=== PATIENT | female | born 1965 | race Caucasian/White ===

== ENCOUNTER → 2020-05-27 14:02 | Outpatient (BNVA) | payer OTHER, SELFPAY | PROVIDERS: PCP Internal Medicine; Visit Provider Obstetrics & Gynecology | DX: N95.0 Postmenopausal bleeding (principal) | CPT/HCPCS: 58100; 99214 ==

== ENCOUNTER 2020-05-27 16:16 | Outpatient (REF) | payer OTHER, SELFPAY | END 2020-05-27 16:17 | disposition home or self-care (01) | LOC: HO.LNP 16:16 | PROVIDERS: Visit Provider Obstetrics & Gynecology | DX: N95.0 Postmenopausal bleeding (principal) | CPT/HCPCS: 88305 ==

== ENCOUNTER → 2020-06-11 13:50 | Outpatient (BNVA) | payer OTHER, SELFPAY | PROVIDERS: PCP Internal Medicine; Visit Provider Obstetrics & Gynecology | DX: N95.0 Postmenopausal bleeding (principal); E11.9 Type 2 diabetes mellitus without complications; I10 Essential (primary) hypertension; N84.0 Polyp of corpus uteri | CPT/HCPCS: 99212; 99213 ==

== ENCOUNTER → 2020-06-15 09:55 | Outpatient (BNVA) | payer OTHER, SELFPAY | PROVIDERS: PCP Internal Medicine; Visit Provider Internal Medicine Gastroenterology | DX: Z01.818 Encounter for other preprocedural examination (principal); K58.2 Mixed irritable bowel syndrome | CPT/HCPCS: 99212 ==

== ENCOUNTER → 2020-06-30 09:45 | Outpatient (BNVA) | payer OTHER, SELFPAY | PROVIDERS: PCP Internal Medicine; Visit Provider Obstetrics & Gynecology | DX: Z01.818 Encounter for other preprocedural examination (principal); N84.0 Polyp of corpus uteri; N95.0 Postmenopausal bleeding | CPT/HCPCS: 99212 ==

== ENCOUNTER 2020-07-02 07:04 | Day surgery (SDC) | payer OTHER, SELFPAY ==
--- NOTE | 2020-06-30 14:25 | P.CONAN_ITS ---
Documented by User: Nani Salinas 06/30/20 14:25 HPI - Anesthesia Eval Consult details Narrative: 55yo F for D&C Diagnostic Hysteroscopy with Myosure [facility] Past Medical History Medical History Anemia Arthritis Chronic sinusitis Hyperlipidemia Insomnia Postmenopausal bleeding Family History Family History Mother Diabetes HTN (hypertension) Father History of high blood pressure Surgical History Surgical History Hx of tubal ligation Social History Social History Alcohol intake: never Smoking Status: Never smoker Use of substances other than those prescribed or required for medical reasons: No Advance Directives: No Sexual orientation: Straight/Heterosexual Gender identity: female Meds Allergies Allergy/AdvReac Type Severity Reaction Status Date / Time No Known Allergies Allergy Unverified 05/07/20 16:15 Home Medications Medication Instructions Recorded Confirmed Type trazodone 100 mg tablet 100 mg PO BEDTIME PRN 05/27/20 07/02/20 History Exam Exam Date and Time: June 30, 2020 1425 Pertinent Lab Results Pertinent Lab Results: Laboratory Tests 04/21/20 15:05 WBC 10.1 Hgb 13.6 Hct 42.2 Plt Count 308 Assessment and Plan Assessment Anesthesia Assessment: Chart Reviewed Documented by User: Johanne Cochran 07/02/20 07:35 [facility] Past Medical History Medical History Anemia Arthritis Chronic sinusitis Hyperlipidemia Insomnia Postmenopausal bleeding Family History Family History Mother Diabetes HTN (hypertension) Father History of high blood pressure Surgical History Surgical History Hx of tubal ligation Social History Social History Alcohol intake: never Smoking Status: Never smoker Use of substances other than those prescribed or required for medical reasons: No Advance Directives: No Sexual orientation: Straight/Heterosexual Gender identity: female Meds Allergies Allergy/AdvReac Type Severity Reaction Status Date / Time No Known Allergies Allergy Unverified 05/07/20 16:15 Home Medications Medication Instructions Recorded Confirmed Type trazodone 100 mg tablet 100 mg PO BEDTIME PRN 05/27/20 07/02/20 History Exam Airway Mallampati Class: II TM Dist: >3cm Neck ROM: Full Loose/Missing/Broken Teeth: No Heart: RRR Lungs: CTA Assessment and Plan Assessment Anesthesia Assessment: Anesthesia Plan Discussed and Chart Reviewed Final Anesthetic Review NPO: Yes ASA Class: II Final Preanesthetic Review: Meds/Allgs Chart Reviewed, Consent Obtained/Reviewed and Anes Risks/Benef Reviewed Patient Risk: Low Procedure Risk: Low Anesthetic Plan Anesthetic Plan: GA Disposition: Standard PACU
[2020-07-02] VITALS (7 sets, daily range): BP systolic 121–140; BP diastolic 62–70; PULSE 58–77; RESP 16–20; TEMP 36.1–37; O2SAT 96–100; BMI 35.4
[2020-07-02] MEDS: Lactated Ringers 1,000 ML 100 ML IVCONT (07:23)
--- NOTE | 2020-07-02 07:26 | MHC.SHP ---
Pre-Procedural Eval Section A The patient is an INPATIENT: No Changes since office visit: No Cold of Flu in the past 2 weeks, No New Medical Problems, No Changes in Medication and No Patient answered all questions The History & Physical has been completed within 30 days and I have reviewed it.: Yes Section B Chief Complaint: Post Menopausal Bleeding Allergies: Allergies Allergy/AdvReac Type Severity Reaction Status Date / Time No Known Allergies Allergy Unverified 05/07/20 16:15 Plan Patient has been examined and remains a candidate for the planned procedure
--- NOTE | 2020-07-02 08:22 | W.PM.OPN ---
Operative Note Operative Note Narrative: Procedure Performed: hysteroscopy D&C with myosure Pre-op Diagnoses: 1. Postmenopausal bleeding 2. Endometrial polyp Post-op Diagnoses: Same Indications: Ms. Tomlinson is a 55 year old female with postmenopausal bleeding. She presents today for hysteroscopy d&c for polypectomy after office EMB for postmenopausal bleeding showed benign fragments of polyp. Surgical Risks: The patient was informed of the risks and benefits of a hysteroscopy with dilation and curettage. Risks included but were not limited to bleeding, infection, injury to the vulva, vagina, or cervix, and uterine perforation with possible need for further surgery. The patient expressed understanding of the risks involved, all questions were answered, and the patient consented to the procedure. Procedure Details: The patient was taken to the operating room where a time out was confirmed to confirm correct patient and correct procedure. Adequate general anesthesia was established. The patient was then positioned on the operating table in the dorsal lithotomy position with her legs supported using stirrups. All pressure points were padded and a warm blanket was placed to maintain control of core body temperature. The patient was then prepped and draped in the usual sterile fashion. A straight catheter was inserted into the bladder and 50mL of urine was obtained. A bivalve speculum was then inserted into the vagina. The anterior lip of the cervix was visualized and grasped using a single tooth tenaculum. The cervix was adequately dilated using Gandhi dilators for the introduction of the hysteroscope. The hysteroscope was introduced under direct visualization using normal saline solution as the distending media. The hysteroscope was advanced to the fundus and the entire uterine cavity was inspected. One small polypoid area at 0100 near the fundus was noted. Bilateral ostia were visualized and within normal. The myosure device was introduced and curettage of the polypoid area was performed in routine fashion. The myosure device was retracted and the hysteroscope was then removed and a sharp curetting was performed starting at the 12 o?clock position and rotating a total of 360 degrees in order to cover all surfaces. Endometrial tissue was obtained and was sent to pathology. Following the curetting, good hemostasis was noted. The single-tooth tenaculum was removed from the anterior lip of the cervix and hemostasis was also noted at the tenaculum puncture sites. The speculum was then removed from the vagina. At the end of the procedure, all needle, sponge, and instrument counts were noted to be correct x2. The patient was transferred to the recovery room in stable condition. IVF: 500mL EBL: minimal UOP: 50mL
--- NOTE | 2020-07-02 08:32 | P.OP_ITS ---
Operative Note Operative Note Narrative: Procedure Performed: Hysteroscopy D&C with Myosure Pre-Procedure Diagnoses: 1. Postmenopausal bleeding 2. Endometrial polyp Post-Procedure Diagnoses: Same as pre-procedure Indications: Ms. Tomlinson is a 55 year old female with postmenopausal bleeding. She presents today for hysteroscopy d&c following findings of benign fragments of polyp on office endometrial biopsy. Surgical Risks: The patient was informed of the risks and benefits of a hysteroscopy with dilation and curettage. Risks included but were not limited to bleeding, infection, injury to the vulva, vagina, or cervix, and uterine perforation with possible need for further surgery. The patient expressed un derstanding of the risks involved, all questions were answered, and the patient consented to the procedure. Details of the Procedure: The patient was taken to the operating room where a time out was confirmed to confirm correct patient and correct procedure. Adequate general anesthesia was established. The patient was then positioned on the operating table in the dorsal lithotomy position with her legs supported using stirrups. All pressure points were padded and a warm blanket was placed to maintain control of core body temperature. The patient was then prepped and draped in the usual sterile fashion. A straight catheter was inserted into the bladder and 50mL of urine was obtained. A bivalve speculum was then inserted into the vagina. The anterior lip of the cervix was visualized and grasped using a single tooth tenaculum. The cervix was adequately dilated using Gandhi dilators for the introduction of the hysteroscope. The hysteroscope was introduced under direct visualization using normal saline solution as the distending media. The hysteroscope was advanced to the fundus and the entire uterine cavity was inspected. Bilateral ostia were identified and normal in appearance. One area of polypoid appearing tissue at 0100 o'clock noted near the fundus. The myosure device was advanced and curettage of the polypoid appearing area as well as curettage at 0900 o'clock was performed in routine fashion. The myosure was then retracted and the hysteroscope was removed and a sharp curetting was performed starting at the 12 o?clock position and rotating a total of 360 degrees in order to cover all surfaces. Endometrial tissue was obtained and was sent to pathology. Following the curetting, good hemostasis was noted. The single-tooth tenaculum was removed from the anterior lip of the cervix and hemostasis was also noted at the tenaculum puncture sites. The speculum was then removed from the vagina. At the end of the procedure, all needle, sponge, and instrument counts were noted to be correct x2. The patient was transferred to the recovery room in stable condition. Fluid Deficit: 255mL IVF: 500mL EBL: minimal UOP: 50mL
--- NOTE | 2020-07-02 08:42 | HO.POSTANES ---
Post Anesthesia Evaluation Post Anesthesia Evaluation Vital Signs: Vital Signs Temp Pulse Resp BP Pulse Ox 07/02/20 08:37 66 16 130/66 98 07/02/20 08:32 68 16 128/65 98 07/02/20 08:27 66 16 129/69 98 07/02/20 08:22 98.6 F 71 16 123/65 98 07/02/20 07:07 97.7 F 77 20 140/70 H 100 Anesthesia: General Mental Status: Awake Pain Control: Satisfactory Nausea/Vomiting: None Hydration: Adequate Anesthesia-Related Issues: No Anes. Related Issues
== END 2020-07-02 09:34 | disposition home or self-care (01) ==
PROVIDERS: PCP Internal Medicine; Visit Provider Obstetrics & Gynecology
PROC: 0UDB8ZX Extraction of Endometrium, Via Natural or Artificial Opening Endoscopic, Diagnostic (ICD-10-PCS; CPT 58558; principal; 2020-07-02 07:30)
DX: N95.0 Postmenopausal bleeding (principal); N84.0 Polyp of corpus uteri; D64.9 Anemia, unspecified; M19.90 Unspecified osteoarthritis, unspecified site; Z79.899 Other long term (current) drug therapy; Z98.51 Tubal ligation status
CPT/HCPCS: 58558; 88305; J1100; J2250; J2405; J3010

== ENCOUNTER → 2020-07-15 10:43 | Outpatient (BNVA) | payer OTHER, SELFPAY | PROVIDERS: Visit Provider Obstetrics & Gynecology | DX: Z76.89 Persons encountering health services in other specified circumstances (principal) ==

== ENCOUNTER 2020-08-11 09:58 | Day surgery (SDC) | payer OTHER, SELFPAY ==
[2020-08-04 12:02] VITALS: BMI 35.1
--- NOTE | 2020-08-10 09:09 | HO.ANESPROP2 ---
Documented by User: Nani Salinas 08/10/20 09:13 HPI - Anesthesia Eval Consult details Narrative: 55yo F for Colonoscopy [facility] Past Medical History Medical History Anemia Arthritis Chronic sinusitis Hyperlipidemia Insomnia Postmenopausal bleeding Family History Family History Mother Diabetes HTN (hypertension) Father History of high blood pressure Surgical History Surgical History Hx of dilation and curettage Hx of tubal ligation Social History Social History Are you a primary health care consultant to a significant other at home: No Do you presently have visiting nurse or other home services: No Alcohol intake: never Smoking Status: Never smoker Use of substances other than those prescribed or required for medical reasons: No Have you been hit, kicked, punched, or otherwise hurt by someone within the past year? If so, by whom?: No Advance Directives: No Advance Directives Information Provided: No Advance Directives on File: No Recently lost weight without trying: No Sexual orientation: Straight/Heterosexual Gender identity: female Meds Allergies Allergy/AdvReac Type Severity Reaction Status Date / Time No Known Allergies Allergy Verified 08/04/20 11:55 Home Medications Medication Instructions Recorded Confirmed Type trazodone 100 mg tablet 100 mg PO BEDTIME PRN 05/27/20 08/04/20 History cholecalciferol (vitamin D3) 1 tab PO DAILY 08/04/20 08/04/20 History [Vitamin D3] Exam Exam Date and Time: August 10, 2020 0909 Height,Weight and Vital Signs: Height 5 ft 3 in Weight 90 kg Pertinent Lab Results Pertinent Lab Results: Laboratory Tests 04/21/20 15:05 WBC 10.1 RBC 5.00 Hgb 13.6 Hct 42.2 Plt Count 308 Assessment and Plan Assessment Anesthesia Assessment: Chart Reviewed Documented by User: Dheeraj Lopes 08/11/20 11:31 [facility] Past Medical History Medical History Anemia Arthritis Chronic sinusitis Hyperlipidemia Insomnia Postmenopausal bleeding Family History Family History Mother Diabetes HTN (hypertension) Father History of high blood pressure Surgical History Surgical History Hx of dilation and curettage Hx of tubal ligation Social History Social History Are you a primary health care consultant to a significant other at home: No Do you presently have visiting nurse or other home services: No Alcohol intake: never Smoking Status: Never smoker Use of substances other than those prescribed or required for medical reasons: No Have you been hit, kicked, punched, or otherwise hurt by someone within the past year? If so, by whom?: No Advance Directives: No Advance Directives Information Provided: No Advance Directives on File: No Recently lost weight without trying: No Sexual orientation: Straight/Heterosexual Gender identity: female Meds Allergies Allergy/AdvReac Type Severity Reaction Status Date / Time No Known Allergies Allergy Verified 08/04/20 11:55 Home Medications Medication Instructions Recorded Confirmed Type trazodone 100 mg tablet 100 mg PO BEDTIME PRN 05/27/20 08/04/20 History cholecalciferol (vitamin D3) 1 tab PO DAILY 08/04/20 08/04/20 History [Vitamin D3] Exam Airway Mallampati Class: II TM Dist: >3cm Neck ROM: Full
[2020-08-11 10:17] VITALS: BP 149/79; PULSE 95; RESP 16; TEMP 36.4; O2SAT 98
[2020-08-11] MEDS: Lactated Ringers 1,000 ML 100 ML IVCONT (10:25)
--- NOTE | 2020-08-11 11:20 | W.PM.OPN ---
Operative Note Operative Note Date of Service: 08/11/20 Narrative: Pre-op diagnosis: Colon cancer screening, IBS with diarrhea Post-op diagnosis: other (colon polyp, diverticulosis, hemorrhoids) Procedure: COLONOSCOPY TO CECUM WITH SNARE POLYPECTOMY AND BIOPSIES Consent: Indications for the procedure and potential complications of bleeding, perforation, reaction to medications and missed diagnosis were discussed with the patient and informed consent was obtained. Instrument: Olympus PCF H 190 L variable stiffness pediatric colonoscope Monitoring: Vital signs and clinical assessment, intermittent blood pressure monitoring, continuous EKG monitoring, Pulse oximetry and Carbon Dioxide monitoring were done throughout the procedure. Colon withdrawl time was 16 minutes. Procedure: The patient was placed in the left lateral decubitis position and pre-procedure medications were administered. After a digital rectal examination of the ano-rectum, the video colonoscope was inserted into the rectum and advanced through the colon to the cecum. The colonoscope was slowly withdrawn in a retrograde panoramic fashion and the colon mucosa was carefully examined including a retroflexed view of the rectum. Findings and interventions are described below. Procedure Difficulty: Without difficulty Findings: Terminal Ileum: Not evaluated Cecum: A 6-7 mm sessile polyp removed with a cold snare and polyp was not retrieved Ascending Colon: Normal Transverse Colon: Normal Descending Colon: Moderate diverticulosis Sigmoid Colon: Severe diverticulosis with luminal narrowing Rectum: Normal Ano-rectum: Small internal hemorrhoids Colon preparation: Good after copious irrigation Impression and Post Procedure Diagnosis: Colonoscopy Findings: One small polyp removed and not retrieved. Random biopsies were obtained from the colon. Moderate diverticulosis seen in the left colon Small hemorrhoids on retroflexed exam. Plan: Await pathology results Patient has an appointment on 08/27/20 in the [facility] with Mikey Senior M.D. Repeat Colonoscopy interval based on path results - in 5 years since an adenomatous appearing polyp was removed and not retrieved. Above findings were reviewed with the patient and colon polyps and diverticulosis handouts were given in the discharge area Surgeon: Mikey Senior MD Anesthesia: MAC (Dr Lopes) Estimated blood loss (mL): 0 Pathology: other (A. Random colon biopsies) Condition: stable Disposition: PACU
--- NOTE | 2020-08-11 11:20 | MHC.SHP ---
Pre-Procedural Eval Section A The patient is an INPATIENT: No The History & Physical has been completed within 30 days and I have reviewed it.: No Section B Chief Complaint: screening Details of Present Illness: colon cancer screening, diarrhea Relevant Family History (Specify if Yes): No Relevant Social History: None Present Medications: see Short Stay Collaborative assessment Medical History: Significant History (Chronic sinusitis. Arthritis. Hx of hyperlipidemia. Anemia. Insomnia. hypovitaninosis D. ) History of Previous Operations: Relevant previous surgery/procedure and date(s) (tubal ligation ) Allergies: Allergies Allergy/AdvReac Type Severity Reaction Status Date / Time No Known Allergies Allergy Verified 08/04/20 11:55 Review of Systems Sugical H&P ROS: Negative: Constitution, Cardiovascular and Respiratory and Yes, Specify: Gastrointestinal (CHRONIC DIARRHEA) Exam Surgical H&P Exam: Normal: Heart, Normal: Lungs, Normal: Extremities and Normal: Abdomen Plan Diagnosis/Plan: Unchanged I have reviewed the history and physical and performed a pertinent physical examination on my patient. No changes have occurred unless specified.
[2020-08-11 12:17] VITALS: BP 98/57; PULSE 82; RESP 16; TEMP 36.7; O2SAT 97
[2020-08-11 12:32] VITALS: BP 111/66; PULSE 78; RESP 16; TEMP 36.7; O2SAT 95
--- NOTE | 2020-08-11 13:32 | PC.NURSE ---
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
--- NOTE | 2020-08-11 13:43 | HO.POSTANES ---
Post Anesthesia Evaluation Post Anesthesia Evaluation Vital Signs: Vital Signs Temp Pulse Resp BP Pulse Ox 08/11/20 12:32 98.1 F 78 16 111/66 95 08/11/20 12:17 98.1 F 82 16 98/57 L 97 08/11/20 10:17 97.6 F 95 16 149/79 H 98 Anesthesia: Monitored Mental Status: Awake Pain Control: Satisfactory Nausea/Vomiting: None Hydration: Adequate Anesthesia-Related Issues: No Anes. Related Issues
== END 2020-08-11 13:25 | disposition home or self-care (01) ==
PROVIDERS: PCP Internal Medicine; Visit Provider Internal Medicine Gastroenterology
PROC: 0DJD8ZZ Inspection of Lower Intestinal Tract, Via Natural or Artificial Opening Endoscopic (ICD-10-PCS; CPT 45378; principal; 2020-08-11 11:30)
DX: Z12.11 Encounter for screening for malignant neoplasm of colon (principal); K63.5 Polyp of colon; K57.30 Diverticulosis of large intestine without perforation or abscess without bleeding; K64.8 Other hemorrhoids; K58.0 Irritable bowel syndrome with diarrhea; E78.5 Hyperlipidemia, unspecified; J32.8 Other chronic sinusitis; Z79.899 Other long term (current) drug therapy
CPT/HCPCS: 45385; 45380; 88305

== ENCOUNTER → 2020-08-27 11:33 | Outpatient (BNVA) | payer OTHER, SELFPAY | PROVIDERS: PCP Internal Medicine; Visit Provider Internal Medicine Gastroenterology | DX: Z76.89 Persons encountering health services in other specified circumstances (principal) ==

== ENCOUNTER 2020-10-01 10:41 | Outpatient (REF) | payer OTHER, SELFPAY ==
[2020-10-01 11:19] LABS: MANUAL DIFF FLAG NO
[2020-10-01 11:34] LABS: Basophils Percent Auto 0.5 % (0-2); Eosinophils Absolute Auto 0.3 X10*3/uL (0.0-0.4); Eosinophils Percent Auto 3.9 % (0-4); Hematocrit 42.1 % (37-47); Hemoglobin 13.8 g/dl (12.0-16.0); Imm Gran Abs Auto 0.02 X10*3/uL (0.00-0.03); Imm Gran Pct Auto 0.2 % (0.0-0.4); Lymphocytes Absolute Auto 2.7 X10*3/uL (1.2-4.9); Lymphocytes Percent Auto 31.4 % (20-40); Mean Corpuscular HGB Conc 32.8 g/dl (31.0-35.0); Mean Corpuscular Hemoglobin 27.2 pg (27.0-33.0); Mean Corpuscular Volume 82.9 fL (80-98); Mean Platelet Volume 10.5 fL (9.4-12.3); Monocytes Absolute Auto 0.7 X10*3/uL (0.1-1.2); Monocytes Percent Auto 7.8 % (2-11); Neutrophils Absolute Auto 4.8 X10*3/uL (2.0-8.3); Neutrophils Percent Auto 56.2 % (45-73); Platelet Count 278 X10*3/uL (160-400); Red Blood Count 5.08 X10*6/uL (4.20-5.50); White Blood Count 8.5 X10*3/uL (4.8-10.8)
[2020-10-01 12:04] LABS: Alanine Aminotransferase 21 U/L (0-31); Alkaline Phosphatase 91 U/L (39-117); Anion Gap 11 (12-20); Aspartate Amino Transferase 20 U/L (5-31); Bilirubin Total 0.8 mg/dL (0.0-1.0); Blood Urea Nitrogen 10 mg/dL (9-16); Carbon Dioxide 33 mmol/L (22-29); Chloride 103 mmol/L (96-108); Cholesterol 200 mg/dL; Estimated Glomerular Filt Rate 59; Glucose Fasting 104 mg/dL (60-99); HDL Cholesterol 55 mg/dL; Iron 43 mcg/dL (30-160); LDL Cholesterol Calculated 125 mg/dl; Percent Iron Saturation 13 % (15-50); Potassium 4.8 mmol/L (3.3-5.1); Sodium 142 mmol/L (135-145); Total Iron Binding Capacity 325 mcg/dL (228-428); Total Protein 7.7 g/dL (6.5-8.0); Triglycerides 102 mg/dL; Unsaturated Iron Binding 282 ug/dL
[2020-10-01 12:24] LABS: TSH reflex Free T4 3.08 uIU/mL (0.32-4.0)
[2020-10-01 12:30] LABS: Folate 9.6 ng/mL (> or = 4.0); Vitamin B12 785 pg/mL (200-900)
[2020-10-05 17:56] LABS: Vitamin D 25-OH, D2 <4 ng/mL; Vitamin D 25-OH, D3 20 ng/mL; Vitamin D 25-OH, Total 20 ng/mL (30-100)
== END 2020-10-01 10:42 | disposition home or self-care (01) ==
LOC: HO.LAB 10:41
PROVIDERS: PCP Internal Medicine; Visit Provider Internal Medicine
DX: D64.9 Anemia, unspecified (principal); R53.82 Chronic fatigue, unspecified; E78.5 Hyperlipidemia, unspecified; E55.9 Vitamin D deficiency, unspecified
CPT/HCPCS: 36415; 80053; 80061; 82306; 82607; 82746; 83540; 84443; 85025

== ENCOUNTER 2020-10-15 09:04 | Emergency (ER) | payer OTHER, SELFPAY ==
[2020-10-15 09:08] VITALS: BP 147/74; PULSE 80; RESP 16; TEMP 37.1; O2SAT 98; BMI 35.2
--- NOTE | 2020-10-15 09:37 | ED_ITS ---
HPI - Ear Problem General Chief complaint: Ear Problems Stated complaint: ear pain Time Seen by Provider: 10/15/20 09:12 Source: patient Mode of arrival: ambulatory Limitations: no limitations History of Present Illness HPI Narrative: 55 y/o female presenting with left sided ear pain for the last 3 days. She states the pain is worse at night when she lays down and she did not sleep at all last night due to the pain. She has a left sided headache and runny nose with green nasal discharge. She denies fever, chills, N/V, myalgias, SOB, chest pain. No sick contacts. Hx seasonal allergies. MD Complaint: ear pain Location: left ear Duration: constant Severity: moderate Relieving factors: nothing Exacerbating factors: position of head Context: recent illness Discharge from ear: no Associated symptoms ear: headache and rhinorrhea Treatment prior to arrival: none Related Data Previous Rx's Medication Instructions Recorded acetaminophen [Tylenol 8 Hour] 650 mg PO Q8H PRN #30 tab 07/02/20 ibuprofen 800 mg PO Q8H PRN #30 tab 07/02/20 trazodone 100 mg tablet 100 mg PO BEDTIME PRN 90 Days #90 09/16/20 tab cholecalciferol (vitamin D3) 50 50 mcg PO DAILY 90 Days #90 tab 09/30/20 mcg (2,000 unit) tablet amoxicillin-pot clavulanate 1 tab PO Q12H #14 tab 10/15/20 [Augmentin] Allergies Allergy/AdvReac Type Severity Reaction Status Date / Time No Known Allergies Allergy Verified 09/16/20 14:17 Review of Systems Review of Systems: Constitutional: No Fever, No Chills ENT/Mouth: No sore throat, N+ Rhinorrhea, No Swallowing Difficulty, +ear pain Eyes: No Eye Pain, No Swelling, No Redness Cardiovascular: No Chest Pain, No SOB Respiratory: No Cough, No Sputum Gastrointestinal: No Nausea, No Vomiting, No Diarrhea, No abdominal Pain Musculoskeletal: No Myalgias Skin: No Skin Lesions, No rash Neuro: No Dizziness, + Headache Heme/Lymph: No Lymphadenopathy PMFSH Past Medical History Medical History Anemia Arthritis Chronic fatigue Chronic sinusitis Dyslipidemia Hypovitaminosis D Insomnia Postmenopausal bleeding Surgical History Hx of colonoscopy Hx of dilation and curettage Hx of tubal ligation Family History Family History Mother Diabetes HTN (hypertension) Father History of high blood pressure Social History Social History Household Members: Children Alcohol intake: never Smoking Status: Never smoker Tobacco Type: Cigarette Advance Directives: Yes Advance Directives Information Provided: Yes Advance Directives on File: No Current occupational status: disabled Sexual orientation: Straight/Heterosexual Gender identity: female Physical Exam Vital Signs: Vital Signs: Last Vital Signs Temp 98.7 F 10/15/20 09:08 Pulse 80 10/15/20 09:08 Resp 16 10/15/20 09:08 BP 147/74 H 10/15/20 09:08 Pulse Ox 98 10/15/20 09:08 Body Mass Index 35.2 Const: General: cooperative, healthy appearing, comfortable, no acute distress and well developed Orientation/consciousness: oriented to person, oriented to place, oriented to time and patient oriented x3 HENMT: Head: Yes normal to inspection Ears: hearing grossly normal bilaterally, external ears normal, TM normal on the right and TM abnormal bulging, erythematous and with fluid behind the TM General nose exam: Normal external nose present, Normal nares present and Nasal discharge present mucoid Face and sinus: Yes normal facial exam Mouth: Normal oral and palatal mucosa present, lip normal and tongue normal Teeth and gingiva: dentition normal and gingiva normal Throat: Yes posterior oropharynx normal, Yes tonsils normal and Yes uvula midline Eyes: General: appearance normal, both eyes and all related structures Neck: Neck: Yes normal visual inspection, Yes full ROM and Yes no lymphadenopathy Chest: Chest palpation & inspection: normal inspection of the chest Resp: Effort & Inspection: normal respiratory effort and able to speak in complete sentences Auscultation: clear to auscultation bilaterally Cardio: Rate: regular rate Rhythm: regular rhythm Neuro: General: oriented to person, oriented to place, oriented to time and patient oriented x3 Cranial nerves: Yes CN's II-XII intact bilaterally Gait exam (Neuro): Normal gait present Extrem: General: Yes normal to inspection Psych: Appearance: grossly normal and well kempt Mental Status: mental status grossly normal Course Course Course Narrative: 55 y/o female presenting with left ear pain associated with green nasal discharge and left sided headache. Left TM with fluid behind. Concern for early sinus infection. Will start treatment with oral Augmentin and have her follow up with her PCP next week. Stable for d/c. MDM - Ear Differential Diagnosis Differential diagnosis: Likely otitis externa, otitis media, foreign body in ear, ruptured TM and cerumen impaction Medical Records Attestation: I reviewed the patient's medical records. Critical Care Time Critical Care Time Critical Care Time: No Discharge Plan Discharge Clinical Impression: Otitis media Qualifiers: Otitis media type: serous Chronicity: acute Laterality: left Recurrence: non- recurrent Qualified Code(s): H65.02 - Acute serous otitis media, left ear Patient Disposition: Home, Self-Care Instructions: Ear Infection (ED) Additional Instructions: Take the antibiotics as prescribed. Recommend Tylenol and/olr Motrin as needed for pain. Follow up with your doctor early next week. Prescriptions: New amoxicillin-pot clavulanate [Augmentin] 875-125 mg tablet 1 tab PO Q12H Qty: 14 RF: 0 No Action cholecalciferol (vitamin D3) [Vitamin D3] 50 mcg (2,000 unit) tablet 50 mcg PO DAILY 90 Days Qty: 90 RF: 3 ibuprofen 800 mg tablet 800 mg PO Q8H PRN (Reason: pain) Qty: 30 RF: 0 acetaminophen [Tylenol 8 Hour] 650 mg tablet extended release 650 mg PO Q8H PRN (Reason: pain) Qty: 30 RF: 0 trazodone 100 mg tablet 100 mg PO BEDTIME PRN (Reason: Sleep) 90 Days Qty: 90 RF: 3
== END 2020-10-15 09:55 | disposition home or self-care (01) ==
PROVIDERS: Emergency Provider Emergency Medicine; PCP Internal Medicine
DX: H65.02 Acute serous otitis media, left ear (principal); F17.210 Nicotine dependence, cigarettes, uncomplicated
CPT/HCPCS: 99283

== ENCOUNTER 2020-10-15 12:48 | Outpatient (REF) | payer OTHER, SELFPAY ==
--- NOTE | ~2020-10-15 | MM_ITS ---
EXAMINATION: MM SCREENING DIGITAL BREAST TOMOSYNTHESIS, BILATERAL CLINICAL INFORMATION: Screening. Asymptomatic. The lifetime risk of breast cancer based on the Tyrer-Cuzick Model is 8.0%. COMPARISON: Mammography: August 30, 2019 and studies dating back to February 12, 2010 TECHNIQUE: Digital breast tomosynthesis is performed in both the craniocaudal and mediolateral oblique views along with computer-aided detection (CAD). Synthesized 2D images are generated from the tomosynthesis. FINDINGS: There are scattered areas of fibroglandular density (ACR BI-RADS breast composition Category b). There are no significant masses, abnormal calcifications, or other abnormalities. MM/MM tomosynthesis screening BI IMPRESSION: There are no significant changes from prior study. ASSESSMENT: BI-RADS 1: Negative RECOMMENDATION: Routine annual mammography screening. This patient's information was entered into a reminder system with a target due date for their next mammogram.
== END 2020-10-15 12:49 | disposition home or self-care (01) ==
LOC: HO.MAMMO 12:48
PROVIDERS: PCP Internal Medicine; Visit Provider Internal Medicine
DX: Z12.31 Encounter for screening mammogram for malignant neoplasm of breast (principal)
CPT/HCPCS: 77063; 77067

== ENCOUNTER 2020-12-16 14:52 | Outpatient (REF) | payer OTHER, SELFPAY ==
[2020-12-17 03:36] LABS: CT PCR NOT DETECTED (Not Detect.); NG PCR NOT DETECTED (Not Detect.)
[2020-12-17 09:06] LABS: BV Int Neg Control Negative (Negative); BV Int Pos Control Positive (Positive)
== END 2020-12-16 14:53 | disposition home or self-care (01) ==
LOC: HO.LAB 14:52
PROVIDERS: PCP Internal Medicine; Visit Provider Advanced Practice Midwife
DX: N94.9 Unspecified condition associated with female genital organs and menstrual cycle (principal); E78.5 Hyperlipidemia, unspecified; E55.9 Vitamin D deficiency, unspecified; Z11.3 Encounter for screening for infections with a predominantly sexual mode of transmission; Z11.8 Encounter for screening for other infectious and parasitic diseases
CPT/HCPCS: 81003; 87480; 87491; 87510; 87591; 87660; 99212

== ENCOUNTER 2021-02-18 11:24 | Outpatient (REF) | payer OTHER, SELFPAY ==
[2021-02-18 12:43] LABS: Alanine Aminotransferase 19 U/L (0-31); Alkaline Phosphatase 88 U/L (39-117); Anion Gap 11 (12-20); Aspartate Amino Transferase 19 U/L (5-31); Bilirubin Total 0.7 mg/dL (0.0-1.0); Blood Urea Nitrogen 12 mg/dL (9-16); Calcium 9.5 mg/dL (8.4-10.2); Carbon Dioxide 30 mmol/L (22-29); Chloride 104 mmol/L (96-108); Cholesterol 192 mg/dL; Estimated Glomerular Filt Rate > 60; Glucose Fasting 100 mg/dL (60-99); HDL Cholesterol 54 mg/dL; LDL Cholesterol Calculated 121 mg/dl; Potassium 4.1 mmol/L (3.3-5.1); Sodium 141 mmol/L (135-145); Total Protein 7.6 g/dL (6.5-8.0); Triglycerides 86 mg/dL
== END 2021-02-18 11:25 | disposition home or self-care (01) ==
LOC: HO.LAB 11:24
PROVIDERS: PCP Internal Medicine; Visit Provider Internal Medicine
DX: E78.5 Hyperlipidemia, unspecified (principal)
CPT/HCPCS: 36415; 80053; 80061

== ENCOUNTER 2021-04-19 11:20 | Outpatient (REF) | payer OTHER, SELFPAY ==
--- NOTE | ~2021-04-19 | XR_ITS ---
EXAMINATION: XR CHEST CLINICAL INFORMATION: Shortness of breath. COMPARISON: None TECHNIQUE: 2 views of the chest were obtained. FINDINGS: The lungs are clear. The cardiomediastinal silhouette is normal in size. There is no pleural effusion or pneumothorax. No acute osseous abnormality. XR/XR chest 2V IMPRESSION: No acute cardiopulmonary findings.
--- NOTE | 2021-04-19 11:25 | ECG_ITS ---
Test Reason : TACHYCARDIA Blood Pressure : / mmHG Vent. Rate : 072 BPM Atrial Rate : 072 BPM P-R Int : 134 ms QRS Dur : 076 ms QT Int : 426 ms P-R-T Axes : 041 009 013 degrees QTc Int : 466 ms Sinus rhythm with marked sinus arrhythmia with occasional Premature ventricular complexes Cannot rule out Anterior infarct , age undetermined Abnormal ECG No previous ECGs available Referred By: Nilsa Stahl Electronically Signed By:RUDY DEE
[2021-04-19 13:57] LABS: Thyroid Stimulating Hormone 2.49 uIU/mL (0.32-4.0)
== END 2021-04-19 11:21 | disposition home or self-care (01) ==
LOC: HO.XRAY 11:20
PROVIDERS: PCP Internal Medicine; Visit Provider Internal Medicine
DX: R00.0 Tachycardia, unspecified (principal); R06.02 Shortness of breath
CPT/HCPCS: 36415; 71046; 84443; 93005

== ENCOUNTER → 2021-05-26 13:54 | Outpatient (REF) | payer OTHER, SELFPAY ==
--- NOTE | 2021-05-26 13:57 | CA_ITS ---
Transthoracic Echocardiogram Patient (Last, First, Middle): Shelby Tomlinson, Gender: Female Date of : 1965 Age: 56 Procedure Date: 05/26/2021 Procedure Type: Transthoracic Echocardiogram Location: OP Height: 160.02 cm Weight: 86.18 kg BSA: 1.89 m2 Heart Rate: bpm BP: 128 / 60 mmHg Pressure Tester: ZO Referring MD: Nilsa Stahl MD Symptoms: R06.02 - Shortness of breath Study Quality: Fair ECG Rhythm: Sinus Conclusions: - The left ventricular systolic function is normal. The calculated ejection fraction is 66% by biplane method. - No obvious valvular pathology seen on this study. Findings Left Ventricle Normal left ventricular cavity size. There is normal left ventricular wall thickness. The left ventricular systolic function is normal. The calculated ejection fraction is 66% by biplane method. There is no evidence of regional wall motion abnormalities. Diastolic function is normal for age. Right Ventricle Normal right ventricular cavity size and systolic function. Atria Both atria are normal in size. Aortic Valve There is a normal trileaflet aortic valve. There is no aortic valve stenosis. There is no aortic valve regurgitation. Mitral Valve The mitral valve appears normal. There is trace mitral valve regurgitation. There is no mitral valve stenosis. Pulmonic Valve The pulmonic valve was not well visualized. Tricuspid Valve Normal tricuspid valve structure. There is trace tricuspid valve regurgitation. The pulmonary artery systolic pressure is normal. Great Vessels The aortic annulus, sinuses of valsalva, and asc aorta are normal in size. Venous The inferior vena cava is normal in size and collapses greater than 50% with inspiration. Pericardium/Pleural There is no evidence of pericardial effusion. Prior Study Comparison No prior study available for comparison. Recommendations, Care & Conclusions No obvious valvular pathology seen on this study. Measurements 2D Linear Measurements IVSd: 0.86 0.6-0.9/0.6-1.0 cm LVIDd: 4.69 3.9-5.3/4.2-5.9 cm LVIDd Index: 2.48 2.4-3.2/2.2-3.1 cm/m2 LVIDs: 2.96 2.0-3.6 cm LVPWd: 0.98 0.7-1.1 cm Ao Root: 1.00 2.1-3.5 cm LA Diam: 3.40 2.7-3.8/3.0-4.0 cm LAIDs Index: 1.80 1.5-2.3 cm/m2 LV Mass: 183.23 67-162/88-224 g LV Mass Index: 96.95 43-95/49-115 g/m2 LVOT Diam: 2.00 3.0+(-)1.3 cm 2D Systolic Function EF 4C: 67.60 >55% EF 2C: 65.60 >55% EF BiP: 66.40 >55% Mitral Valve MV Pk E: 0.86 MV PK A: 0.71 MV Decel Time: 159.00 E/A: 1.20 E'Lateral: 12.10 E'Medial: 10.10 E/E' Med: 8.50 E/E' Lat: 7.10 PHT: 47.00 MVA PHT: 4.68 Decel [place]: 5.40 Aortic Valve AoV Pk Manuel: 1.37 AoV Pk Grad: 8.00 LVOT LVOT Pk Manuel: 1.08 LVOT Mn Manuel: 0.72 LVOT VTI: 0.25 LVOT Pk Grad: 5.00 LVOT Mn Grad: 2.00 LVOT Diam: 2.00 LVOT Area: 3.14 Diastolic Function MV Pk E: 0.86 MV Pk A: 0.71 E/A: 1.20 E'Medial: 10.10 E/E' Med: 8.50 E' Laterial: 12.10 E/E' Lat: 7.10 Right Ventricle TAPSE (mm): 2.21 Tricuspid Valve TR Pk Manuel: 2.39 TR Pk Grad: 23.00 RA Press: 3.00 RVSP: 26.00 Great Vessels Aorta Ao Root-2D: 1.00 2.0-3.7 cm Ao Asc: 3.20 2.1-3.4 cm Updated in Other Vendor System with Status of Final Kev Ryan MD electronically signed on 05/26/2021 4:10:31 PM with status of Final
== END ==
LOC: HO.CARD 13:54
PROVIDERS: Visit Provider Internal Medicine
DX: R06.02 Shortness of breath (principal)
CPT/HCPCS: 93306

== ENCOUNTER 2021-07-19 09:31 | Outpatient (REF) | payer OTHER, SELFPAY ==
[2021-07-19 12:53] LABS: CT PCR NOT DETECTED (Not Detect.); NG PCR NOT DETECTED (Not Detect.)
[2021-07-20 09:39] LABS: BV Int Neg Control Negative (Negative); BV Int Pos Control Positive (Positive)
== END 2021-07-19 09:32 | disposition home or self-care (01) ==
LOC: HO.LAB 09:31
PROVIDERS: PCP Internal Medicine; Visit Provider Advanced Practice Midwife
DX: Z01.411 Encounter for gynecological examination (general) (routine) with abnormal findings (principal); M95.0 Acquired deformity of nose
CPT/HCPCS: 81003; 87480; 87491; 87510; 87591; 87660

== ENCOUNTER 2021-08-05 14:29 | Outpatient (REF) | payer OTHER, SELFPAY ==
--- NOTE | ~2021-08-05 | US_ITS ---
EXAMINATION: US PELVIS CLINICAL INFORMATION: Postmenopausal bleeding COMPARISON: 04/30/2020 TECHNIQUE: Ultrasound of the pelvis is performed using both transabdominal and transvaginal transducers along with Doppler. Transvaginal imaging is performed due to inadequate visualization transabdominally. FINDINGS: Uterus: The uterus is anteverted and measures 12.0 x 3.5 x 5.4 cm within endometrial thickness measuring up to 8 mm. A 9 mm lower uterine segment fibroid is again evident. The uterus is smooth in contour and has normal myometrial echogenicity. Endocervical nabothian cysts are evident. Adnexa: Neither the left nor the right ovary is visualized on this examination. No free fluid is detected in the cul-de-sac. US/US pelvic and transvaginal IMPRESSION: 1. Endometrium measuring 8 mm, greater than expected for post menopause. Gynecologic management is recommended, as endometrial hyperplasia, neoplasm and polyp are within the differential diagnosis. 2. Ovaries not visualized. 3. Small stable lower uterine segment fibroid.
== END 2021-08-05 14:30 | disposition home or self-care (01) ==
LOC: HO.US 14:29
PROVIDERS: PCP Internal Medicine; Visit Provider Advanced Practice Midwife
DX: N95.0 Postmenopausal bleeding (principal)
CPT/HCPCS: 76830; 76856

== ENCOUNTER → 2021-08-10 16:13 | Outpatient (BNVA) | payer OTHER, SELFPAY | PROVIDERS: PCP Internal Medicine; Visit Provider Advanced Practice Midwife ==

== ENCOUNTER → 2021-09-27 14:53 | Outpatient (BNVA) | payer OTHER, SELFPAY | PROVIDERS: PCP Internal Medicine; Visit Provider Obstetrics & Gynecology | DX: N95.0 Postmenopausal bleeding (principal) | CPT/HCPCS: 99212 ==

== ENCOUNTER → 2021-10-14 13:24 | Outpatient (BNVA) | payer OTHER, SELFPAY | PROVIDERS: PCP Internal Medicine; Visit Provider Obstetrics & Gynecology | DX: Z01.818 Encounter for other preprocedural examination (principal); N95.0 Postmenopausal bleeding | CPT/HCPCS: 99212 ==

== ENCOUNTER 2021-10-18 13:58 | Outpatient (REF) | payer OTHER, SELFPAY ==
--- NOTE | ~2021-10-18 | MM_ITS ---
EXAMINATION: MM SCREENING DIGITAL BREAST TOMOSYNTHESIS, BILATERAL CLINICAL INFORMATION: Screening. Asymptomatic. The lifetime risk of breast cancer based on the Tyrer-Cuzick Model is 9%. COMPARISON: Mammography: 10/15/2020, 08/30/2019, 08/24/2018 TECHNIQUE: Digital breast tomosynthesis is performed in both the craniocaudal and mediolateral oblique views along with computer-aided detection (CAD). Synthesized 2D images are generated from the tomosynthesis. FINDINGS: There are scattered areas of fibroglandular density (ACR BI-RADS breast composition Category b). There are no significant masses, abnormal calcifications, or other abnormalities. Parenchymal pattern is similar to prior studies. There is no developing density or architectural abnormality. The axilla and skin contours are unremarkable. No significant changes. MM/MM tomosynthesis screening BI IMPRESSION: No mammographic evidence of malignancy. ASSESSMENT: BI-RADS 1: Negative RECOMMENDATION: Routine annual mammography screening. This patient's information was entered into a reminder system with a target due date for their next mammogram.
== END 2021-10-18 13:59 | disposition home or self-care (01) ==
LOC: HO.MAMMO 13:58
PROVIDERS: PCP Internal Medicine; Visit Provider Internal Medicine
DX: Z12.31 Encounter for screening mammogram for malignant neoplasm of breast (principal)
CPT/HCPCS: 77063; 77067

== ENCOUNTER 2021-10-22 10:11 | Day surgery (SDC) | payer OTHER, SELFPAY ==
[2021-10-15 13:12] VITALS: BMI 40.4
[2021-10-22] VITALS (7 sets, daily range): BP systolic 117–142; BP diastolic 69–81; PULSE 61–96; RESP 16–18; TEMP 36.3–36.8; O2SAT 93–98
--- NOTE | 2021-10-22 10:22 | MHC.SHP ---
Pre-Procedural Eval Section A Date of Service: 10/22/21 The patient is an INPATIENT: No Changes since office visit: No Cold of Flu in the past 2 weeks, No New Medical Problems, No Changes in Medication and No Patient answered all questions The History & Physical has been completed within 30 days and I have reviewed it.: Yes Section B Chief Complaint: postmenopausal bleeding Allergies: Allergies Allergy/AdvReac Type Severity Reaction Status Date / Time No Known Allergies Allergy Verified 09/08/21 10:50 Plan Diagnosis/Plan: Unchanged I have reviewed the history and physical and performed a pertinent physical examination on my patient. No changes have occurred unless specified.
--- NOTE | 2021-10-22 10:24 | P.CONAN_ITS ---
HPI - Anesthesia Eval Consult details Narrative: 56 yo female patient for D&C, hysteroscpy, possible polypectomy, possible myomectomy PMFSH Active Problems Active Problems: All Active Problems (Updated 08/10/21 @ 16:32 by Jose Waters) Endometrial thickening on ultrasound (Acute) Encounter to discuss test results (Acute) Mild recurrent major depression (Acute) Insomnia (Acute) Morbid obesity with BMI of 40.0-44.9, adult (Acute) Tachycardia (Acute) Shortness of breath (Acute) Anemia (Acute). Last Hct 10/01/20 42.1 Hypovitaminosis D (Acute) Chronic fatigue (Acute) Dyslipidemia (Acute) Diverticulosis (Acute) Colon cancer screening (Acute) Postmenopausal bleeding (Acute) Denies SESAR Past Medical History Medical History Anemia Arthritis Chronic fatigue Chronic sinusitis Dyslipidemia Hypovitaminosis D Insomnia Mild recurrent major depression Morbid obesity with BMI of 40.0-44.9, adult Postmenopausal bleeding Shortness of breath Tachycardia Family History Family History Mother Diabetes HTN (hypertension) Father History of high blood pressure Family history of problems with anesthesia: No Surgical History Surgical History Hx of colonoscopy Hx of dilation and curettage Hx of tubal ligation History of Problems with Anesthesia: No Social History Social History Household Members: Children Housing: Apartment Are you a primary managed care liaison to a significant other at home: No Do you presently have visiting nurse or other home services: No Alcohol intake: never Patient Tobacco Use Status: Never used Tobacco e-Cigarette/Vaping Use: Never Used Second Hand Smoke Exposure: No Advance Directives: No (unknown) Advance Directives Information Provided: Yes Advance Directives on File: No service: No Current occupational status: disabled Sexual orientation: Straight/Heterosexual Gender identity: Female Meds Allergies Allergy/AdvReac Type Severity Reaction Status Date / Time No Known Allergies Allergy Verified 09/08/21 10:50 Exam Exam Date and Time: October 22, 2021 1024 Height,Weight and Vital Signs: Height 5 ft Weight 94 kg Vital Signs Temp Pulse Resp BP Pulse Ox 10/22/21 10:31 98.3 F 96 18 142/81 H 98 Airway Mallampati Class: II TM Dist: >3cm Neck ROM: Full Loose/Missing/Broken Teeth: No Heart: RRR Lungs: CTAB Assessment and Plan Assessment Anesthesia Assessment: Anesthesia Plan Discussed and Chart Reviewed Final Anesthetic Review Family History of Problems with Anesthesia: No History of Problems with Anesthesia: No NPO: Yes ASA Class: III Final Preanesthetic Review: No Changes in Pt Med Stat, Meds/Allgs Chart Reviewed, Consent Obtained/Reviewed and Anes Risks/Benef Reviewed Patient Risk: Intermediate Procedure Risk: Low Assessment/Block/Sedation in SS: Assess/Block/Sedation-SS Anesthetic Plan Anesthetic Plan: GA Disposition: Standard PACU
[2021-10-22] MEDS: Acetaminophen 325 MG TABLET 650 MG PO (10:35)
[2021-10-22] MEDS: Lactated Ringers 1,000 ML 100 ML IVCONT (10:36)
--- NOTE | 2021-10-22 11:15 | PM.OP ---
Brief Operative Note Date of Service: 10/22/21 Pre-op diagnosis: postmenopausal bleeding Post-op diagnosis: same ( normal endometrial cavity no evidence of pathology) Procedure: Hysteroscopy D&C, Polypectomy Surgeon: Doroteo Fraser MD Anesthesia: MAC Was an Monogram Technician used for this Procedure?: No Estimated blood loss (mL): 0 Pathology: other (Endometrial Scrapping) Condition: stable Disposition: PACU
--- NOTE | 2021-10-22 11:16 | P.OP_ITS ---
Operative Note Operative Note Date of Service: 10/22/21 Narrative: Preop Diagnosis: Post Menopausal bleeding Operation: Diagnostic Hysteroscopy, Dilataion & Curettage Post Op Diagnosis: Normal endometrial cavity QBL: Minimal Anesthesia: MAC Surgeon: Doroteo Fraser MD Structural Iron Erector: None Complication: None Pathology: Endometrial Scrapings Complication: None Pathology: Endometrial Scrapings Procedure: The patient was put in the dorsal lithotomy position, scrubbed, and draped in the usual manner. A sterile speculum was inserted in the patient's vagina. The anterior lip of the cervix was grasped with a single tooth tenaculum. The cervix was dilated up to 5 mm, then the scope was inserted in the patient's uterus. Inspection revealed Normal endometrial cavity. The Myosure Reach device was used; sharp curetting was carried on with mineral amount of tissues retrieved. At the end of the procedure, all instruments were taken out of the patient uterine and vaginal cavity. The single tooth tenaculum was removed and homeostasis was assured using pressure,. The patient tolerated the procedure well and was transferred to the PACU in a stable condition.
== END 2021-10-22 13:01 | disposition home or self-care (01) ==
PROVIDERS: PCP Internal Medicine; Visit Provider Obstetrics & Gynecology
PROC: 0UDB8ZZ Extraction of Endometrium, Via Natural or Artificial Opening Endoscopic (ICD-10-PCS; CPT 58558; principal; 2021-10-22 11:10)
DX: N95.0 Postmenopausal bleeding (principal); D64.9 Anemia, unspecified; E55.9 Vitamin D deficiency, unspecified; E78.5 Hyperlipidemia, unspecified; F33.0 Major depressive disorder, recurrent, mild; E66.01 Morbid (severe) obesity due to excess calories; Z68.41 Body mass index [BMI] 40.0-44.9, adult; Z79.899 Other long term (current) drug therapy
CPT/HCPCS: 58558; 88305; J1885; J2250; J3010

== ENCOUNTER → 2021-11-05 15:18 | Outpatient (BNVA) | payer OTHER, SELFPAY | PROVIDERS: PCP Internal Medicine; Visit Provider Obstetrics & Gynecology | DX: Z13.89 Encounter for screening for other disorder (principal) ==

== ENCOUNTER 2023-04-14 10:21 | Emergency (ER) | payer OTHER, SELFPAY ==
--- NOTE | ~2023-04-14 | US_ITS ---
EXAMINATION: US VENOUS ULTRASOUND WITH DOPPLER LOWER EXTREMITY, LEFT CLINICAL INFORMATION: Pain and swelling COMPARISON: None available. TECHNIQUE: Ultrasound of the deep veins is performed from the hip to the calf with compression sonography and color and pulse Doppler assessment. Spectral analysis with color-flow imaging is performed. FINDINGS: There is normal venous compression and respiratory variation and augmented flow. The visualized common femoral vein, superficial femoral vein, profunda femoral vein, popliteal vein, and the posterior tibial veins shows no evidence of deep venous thrombosis. The left peroneal veins are not well visualized. There is no significant popliteal fossa cyst. If the patient's symptoms persist, followup ultrasound in 5 days 7 days might be of value to exclude proximal propagation from a non-visualized calf vein. US/US venous duplex LE IMPRESSION: No DVT demonstrated in the left lower extremity. Left peroneal veins not well visualized.
--- NOTE | ~2023-04-14 | XR_ITS ---
EXAMINATION: Left foot and ankle x-ray CLINICAL INFORMATION: Pain and swelling. History of fall. COMPARISON: None. TECHNIQUE: 3 views of the left foot and 3 views of the left ankle FINDINGS: Left foot: Bone alignment is normal. No fracture or dislocation. The joint spaces are normal. There were small calcaneal spurs. Left ankle: There is medial ankle mortise widening. On the oblique view there is question of fracture of the lateral distal tibia. On the lateral view there is a cortically-based bony excrescence projecting off the posterior distal tibia questionable for changes related to old trauma or osteochondroma. There is diffuse soft tissue swelling, greatest medially. XR/XR ankle LT min 3V IMPRESSION: Widened medial ankle mortise and question fracture of the lateral distal tibia. Diffuse soft tissue swelling greatest medially.
--- NOTE | ~2023-04-14 | XR_ITS ---
EXAMINATION: Left foot and ankle x-ray CLINICAL INFORMATION: Pain and swelling. History of fall. COMPARISON: None. TECHNIQUE: 3 views of the left foot and 3 views of the left ankle FINDINGS: Left foot: Bone alignment is normal. No fracture or dislocation. The joint spaces are normal. There were small calcaneal spurs. Left ankle: There is medial ankle mortise widening. On the oblique view there is question of fracture of the lateral distal tibia. On the lateral view there is a cortically-based bony excrescence projecting off the posterior distal tibia questionable for changes related to old trauma or osteochondroma. There is diffuse soft tissue swelling, greatest medially. XR/XR foot LT min 3V IMPRESSION: Widened medial ankle mortise and question fracture of the lateral distal tibia. Diffuse soft tissue swelling greatest medially.
[2023-04-14 11:17] VITALS: BP 166/58; PULSE 76; RESP 19; TEMP 36.6; O2SAT 97; BMI 33.7
--- NOTE | 2023-04-14 12:58 | ED.LOWEXIN ---
HPI - Extremity Injury (Lower) General Chief Complaint: Extremity Injury, Lower Stated Complaint: L Leg Pain S/P Injury 2 Weeks Ago Time Seen by Provider: 04/14/23 11:17 Source: patient, family and old records reviewed Mode of arrival: ambulatory Limitations: no limitations History of Present Illness HPI Narrative: 58-year-old female with history of obesity, HLD, depression, who presents to the ER for evaluation of left ankle, foot, lower leg pain after she fell about 2 weeks ago. She has had swelling to the foot and ankle since the fall. She has been walking with a limp. She reports some intermittent burning pain down the front of the lower leg and ankle. No open wounds. No chest pain or SOB. MD complaint: leg injury, ankle injury and foot injury Onset (ago): week(s) (2) Type of Injury: unknown Place: home Severity: moderate Exacerbating factors: weight bearing, movement and palpation Context: fall Other symptoms: none Related Data Previous Rx's Medication Instructions Recorded acetaminophen 650 mg 650 mg PO Q8H PRN pain #30 tabs 07/02/20 tablet,extended release (Tylenol 8 Hour) ibuprofen 800 mg tablet 800 mg PO Q8H PRN pain #30 tabs 07/02/20 cholecalciferol (vitamin D3) 50 50 mcg PO DAILY 90 days #90 tabs 04/19/21 mcg (2,000 unit) tablet (Vitamin D3) trazodone 100 mg tablet 100 mg PO BEDTIME PRN Sleep 90 09/23/21 days #90 tabs rosuvastatin 5 mg tablet 5 mg PO DAILY 90 days #90 tabs 11/28/21 oxycodone 5 mg tablet 5 mg PO Q8H PRN severe pain (scale 04/14/23 score 7-10) #7 tabs Allergies Allergy/AdvReac Type Severity Reaction Status Date / Time No Known Allergies Allergy Verified 04/14/23 11:16 Review of Systems Review of Systems: Yes all other systems are reviewed and are negative [facility] Past Medical History Medical History Anemia Arthritis Chronic fatigue Chronic sinusitis Dyslipidemia Hypovitaminosis D Insomnia Mild recurrent major depression Morbid obesity with BMI of 40.0-44.9, adult Postmenopausal bleeding Shortness of breath Tachycardia Surgical History Hx of colonoscopy Hx of dilation and curettage Hx of tubal ligation Family History Family History Mother Diabetes HTN (hypertension) Father History of high blood pressure Social History Social History Household Members: Children Housing: Apartment Are you a primary vision care associate to a significant other at home: No Do you presently have visiting nurse or other home services: No Alcohol intake: never Patient Tobacco Use Status: Never used Tobacco e-Cigarette/Vaping Use: Never Used Second Hand Smoke Exposure: No Advance Directives: No Advance Directives Information Provided: No service: No Current occupational status: disabled Sexual orientation: Straight/Heterosexual Gender identity: Female Physical Exam Vital Signs: Vital Signs: Last Vital Signs Temp 98 F 04/14/23 11:17 Pulse 76 04/14/23 11:17 Resp 19 04/14/23 11:17 BP 166/58 H 04/14/23 11:17 Pulse Ox 97 04/14/23 11:17 O2 Del Method Room Air 04/14/23 11:17 BMI result Body Mass Index 33.7 Appearance: Alert. Oriented X3. No acute distress. HEENT: normal inspection CVS: Normal heart rate and rhythm. Pulses normal. Respiratory: No respiratory distress. Skin: Skin warm and dry. Normal skin color. Normal skin turgor. No rashes. Extremities: left ankle and foot with moderate generalized swelling, tenderness of the proximal foot and lateral malleolus, no ecchymosis. pain w/ plantarflexion and dorsiflexion. no calf tenderness. foot is warm and well perfused w/ 2+ DP pulses. Neuro: Oriented X 3. No motor deficit. No sensory deficit. antalgic gait Medical Decision Making Medical Decision Making MDM Narrative: 58 yo female presenting with left foot and ankle pain s/p mechanical fall 2 weeks ago. She reports pain of the lower leg, ankle and foot with diffuse swelling of the ankle and distal leg. LE dopplers were done and negative for DVT. Xrays showed evidence of lateral distal tibia fracture. patient placed in walking boot and provided crutches. ortho consulted. she will f/u with them. stable for d/c home Differential Diagnosis Differential Diagnoses: The differential diagnosis associated with the presentation includes ankle sprain, ankle fracture, foot fracture, foot contusion, DVT, pulled muscle Consult Healthcare Provider Management of the patient was discussed with: Donor Relations Manager ela from ortho Independent Interpretation I performed an independent interpretation of an: Plain X-Ray Interpretation: xray reviewed - agree w/ radiology read Radiology Impression Discussion of test interpretation with radiology: I have reviewed the radiologist's reading. Radiologist Impression: CLINICAL INFORMATION: Pain and swelling. History of fall.? COMPARISON: None.? TECHNIQUE: 3 views of the left foot and 3 views of the left ankle? FINDINGS: Left foot: Bone alignment is normal. No fracture or dislocation. The joint spaces are normal. There were small calcaneal spurs. Left ankle: There is medial ankle mortise widening. On the oblique view there is question of fracture of the lateral distal tibia. On the lateral view there is a cortically-based bony excrescence projecting off the posterior distal tibia questionable for changes related to old trauma or osteochondroma. There is diffuse soft tissue swelling, greatest medially. XR/XR foot LT min 3V IMPRESSION: Widened medial ankle mortise and question fracture of the lateral distal tibia. Diffuse soft tissue swelling greatest medially.? Independent Historian Clinical information obtained from an independent historian. History obtained from or confirmed by: Other (adult daughter who translated) External Record Review External record reviewed: Outpatient record and Prior outpatient labs Prescription Management I considered prescription management with: Pain Medication Chronic Conditions Patient?s care impacted by: Other (obesity) Critical Care Time Critical Care Time Critical Care Time: No Discharge Plan Discharge Clinical Impression: Fracture of distal end of left tibia Patient Disposition: Home, Self-Care Instructions: Ankle Fracture (DC) Additional Instructions: Wear the provided walking boot for fracture of the ankle You may bear weight as tolerated If it is too painful, use the provided crutches Follow up with Orthopedics for further evaluation and treatment Rest and elevate your foot when able. use ice to help with pain and swelling Take the prescribed pain medication as needed for severe pain only. If you develop new or worsening symptoms call 911 or come back to the ER for further evaluation. Prescriptions: New oxycodone 5 mg tablet 5 mg PO Q8H PRN (Reason: severe pain (scale score 7-10)) Qty: 7 0RF Rx Instructions: Partial Fill upon patient request. No Action trazodone 100 mg tablet 100 mg PO BEDTIME PRN (Reason: Sleep) 90 Days Qty: 90 3RF rosuvastatin 5 mg tablet 5 mg PO DAILY 90 Days Qty: 90 1RF ibuprofen 800 mg tablet 800 mg PO Q8H PRN (Reason: pain) Qty: 30 0RF Rx Instructions: alternate with tylenol acetaminophen [Tylenol 8 Hour] 650 mg tablet extended release 650 mg PO Q8H PRN (Reason: pain) Qty: 30 0RF Rx Instructions: Alternate with ibuprofen (take one medication every 4 hours) cholecalciferol (vitamin D3) [Vitamin D3] 50 mcg (2,000 unit) tablet 50 mcg PO DAILY 90 Days Qty: 90 3RF [place]: [facility] [place] Group] Nilsa Camejo MD [Primary Care Provider] - Print Language: Moz[place]ican
--- NOTE | 2023-04-14 14:57 | PC.NURSE ---
boot applied and crutches given w teaching, pt states she already knows how to use
== END 2023-04-14 16:24 | disposition home or self-care (01) ==
PROVIDERS: Emergency Provider Emergency Medicine Emergency Medical Services; PCP Internal Medicine
DX: S82.302A Unspecified fracture of lower end of left tibia, initial encounter for closed fracture (principal); M25.572 Pain in left ankle and joints of left foot; R60.0 Localized edema; W01.0XXA Fall on same level from slipping, tripping and stumbling without subsequent striking against object, initial encounter; Y93.9 Activity, unspecified; Y92.9 Unspecified place or not applicable; Y99.9 Unspecified external cause status; Z79.899 Other long term (current) drug therapy
CPT/HCPCS: 73610; 73630; 93971; 99282; 99284

== ENCOUNTER 2023-04-18 13:48 | Outpatient (AMB) | payer OTHER, SELFPAY ==
[2023-04-18 13:50] VITALS: BP 132/80; BMI 37.6
--- NOTE | 2023-04-18 13:50 | A.OFFPC_ITS ---
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 Accompanied by: Daughter Allergies No Known Allergies Allergy (Verified 04/18/23 13:59) Medication List - Last Reconciled 04/18/23 by Nilsa Stahl MD cholecalciferol (vitamin D3) (Vitamin D3) 50 mcg PO DAILY 90 days rosuvastatin 5 mg PO DAILY 90 days Tobacco use date assessed: 04/18/23 Dental Screening Dental Screen Date: 04/18/23 Did you have a dental visit in the last 12 months?: No Did you have a dental problem in the last 6 months where you did not have access to dental care?: No Was dental information given to patient?: Patient has dentist HPI HPI Comments History of Present Illness Details This is a 58-year-old female with dyslipidemia and low vitamin-D that comes today accompanied by daughter has hospital discharge follow-up with discharge date 04/14/2023 due to leg injury in left leg after falling from a flight of stairs. Had x-ray that says questionable fracture but patient has no deformity and is able to have full active range of motion. Pain has markedly decreased. Ultrasound Doppler was done to rule out DVT. Patient able to walk with no assistive device. Left ankle still somewhat swollen. I advise rest and ice. On statins for dyslipidemia. Would like her vitamin-D to be on a lower dose. No other acute complaint. [facility] Medical History (Updated 04/18/23 @ 14:09 by Nilsa Stahl MD) Anemia Arthritis Chronic fatigue Chronic sinusitis Dyslipidemia Hypovitaminosis D Insomnia Mild recurrent major depression Morbid obesity with BMI of 40.0-44.9, adult Postmenopausal bleeding Shortness of breath Tachycardia Surgical History Hx of colonoscopy Hx of dilation and curettage Hx of tubal ligation Family History Mother Diabetes HTN (hypertension) Father History of high blood pressure Social History Household Members: Children Housing: Apartment Are you a primary resident caregiver to a significant other at home: No Do you presently have visiting nurse or other home services: No Alcohol intake: never Patient Tobacco Use Status: Never used Tobacco e-Cigarette/Vaping Use: Never Used Second Hand Smoke Exposure: No service: No Current occupational status: disabled Sexual orientation: Straight/Heterosexual Gender identity: Female Cognitive needs: No Hearing needs: No Vision needs: No Questionnaire PHQ-9 Over the last 2 weeks, how often have you been bothered by any of the following problems? 1. Little interest or pleasure in doing things: not at all 2. Feeling down, depressed, or hopeless: not at all 3. Trouble falling or staying asleep, or sleeping too much: not at all 4. Feeling tired or having little energy: not at all 5. Poor appetite or overeating: not at all 6. Feeling bad about yourself - or that you are a failure or have let yourself or your family down: not at all 7. Trouble concentrating on things, such as reading the newspaper or watching television: not at all 8. Moving or speaking so slowly that other people could have noticed. Or the opposite - being so fidgety or restless that you have been moving around a lot more than usual: not at all 9. Thoughts that you would be better off or of hurting yourself in some way: not at all Total score: 0 Depression Screening Interpretation: Negative 58032 - PHQ-9 Billing: Yes Source: Developed by Drs. Atul Rosado, Farida King, Medhat Ruiz and colleagues, with an educational eliot from [employer]. Thrive Questionnaire Date Thrive assessed: 04/18/23 I am a: Patient What is your living situation today?: I have a steady place to live Within the past 12 months, did the food you bought not last and you didn't have the money to get more?: Never true Within the past 12 months, did you worry whether your food would run out before you got money to buy more?: Never true Do you have trouble paying for medicines?: No Do you have trouble getting transportation to medical appointments?: No Do you have trouble paying your heating and electricity bill?: No Do you have trouble taking care of your child, family member or friend?: No Do you have trouble with day-to-day activities such as bathing, preparing meals, shopping, managing finances, etc.?: No Are you currently unemployed and looking for a job?: No Are you interested in more education?: No Please select the resources that you would like help with: None Currently or been in a relationship where the following occur: no concerns reported AUDIT C Alcohol Use Questionnaire (AUDIT-C) 1. How often do you have a drink containing alcohol?: Never Total Score: 0 EAN-7 AMB Questionnaire EAN-7 Date EAN - 7 assessed: 04/18/23 Feeling nervous, anxious, or on edge: 0 = Not at all Not being able to stop or control worryin = Not at all Worrying too much about different things: 0 = Not at all Trouble relaxin = Not at all Being so restless that it is hard to sit still: 0 = Not at all Becoming easily annoyed or irritable: 0 = Not at all Feeling afraid as if something awful might happen: 0 = Not at all Total EAN-7 score (0-4 normal; 5-9 mild; 10-14 moderate; 15-21 severe): 0 Source: Developed by Drs. Atul Rosado, Farida King, Medhat Ruiz and colleagues, with an educational eliot from [employer]. EAN-7 Assessment Billing EAN-7 Assessment Tool: EAN-7 Assessment 75735 Review of Systems Const All systems reviewed & are unremarkable except as noted in HPI and below Eyes Reports no additional complaints, Denies change in vision and Denies other visual disturbances Card Denies chest pain at rest, Denies chest pain with activity, Denies edema, Denies irregular heart rhythm, Denies claudication, Denies dyspnea, Denies dyspnea on exertion, Denies orthopnea, Denies paroxysmal nocturnal dyspnea and Denies slow heart rate Resp Denies cough, Denies dyspnea and Denies dyspnea on exertion GI Denies abdominal pain, Denies change in bowel habits, Denies excessive flatus, Denies nausea and Denies vomiting Denies urinary incontinence, Denies urinary hesitancy and Denies urinary urgency Musc Denies abnormal gait, Denies atrophy, Denies deformity and Denies limited range of motion Skin/Breast Denies bleeding lesions, Denies changing lesions and Denies rash Neuro Denies abnormal gait and Denies lack of coordination Physical exam (Primary Care) Vital Signs: Last Vital Signs BP 132/80 04/18/23 13:50 BMI result Body Mass Index 37.6 Tobacco/Smoking Status: Tobacco use Status Tobacco use date assessed 04/18/23 04/18/23 13:56 Patient Tobacco Use Status Never used Tobacco 04/18/23 13:56 e-Cigarette/Vaping Use Never Used 04/18/23 13:56 PHQ-9: PHQ-9 Score PHQ-9: Total score 0 04/18/23 13:56 Depression Screening Interpretation: Negative Thrive Assessment: Date of Thrive Assessment Date Thrive assessed 04/18/23 04/18/23 13:56 Currently or been in a relationship where the following occur: no concerns reported Eyes General: appearance normal, both eyes and all related structures Eyelids: Yes eyelids normal Conjunctivae: conjunctivae normal Neck Neck: Yes normal visual inspection and Yes supple Resp Effort & Inspection: normal respiratory effort Auscultation: clear to auscultation bilaterally Cardio Jugular venous distension: no JVD Rate: regular rate Rhythm: regular rhythm Heart sounds: S1 normal heart sound present and S2 normal heart sound present Extrem General: Yes full ROM Assessment and Plan Assessment & Plan (1) Hospital discharge follow-up: Code(s): Z09 - Encounter for follow-up examination after completed treatment for conditions other than malignant neoplasm Plan: Discharge date 04/14/2023 due to left leg injury after falling from a flight of stairs. X-rays were done with questionable fracture but clinically does not seem to be a fracture. Ultrasound Doppler rule out DVT. Patient with full active range of motion. (2) Dyslipidemia: Code(s): E78.5 - Hyperlipidemia, unspecified Plan: Continue statins. (3) Leg injury: Code(s): S89.90XA - Unspecified injury of unspecified lower leg, initial encounter Plan: Still has some left ankle edema and was advised to rest and ice (4) Hypovitaminosis D: Code(s): E55.9 - Vitamin D deficiency, unspecified Plan: Continue vitamin-D supplements. Medications: New cholecalciferol (vitamin D3) 25 mcg PO DAILY 90 days 90 caps 1RF Refilled rosuvastatin 5 mg PO DAILY 90 days 90 tabs 1RF Discontinued cholecalciferol (vitamin D3) (Vitamin D3) Discontinued Reason: Patient Completed Course 50 mcg PO DAILY 90 days 90 tabs 3RF R06.02 - Shortness of breath Coding Level of Care Code TCM Mod MDM <= 7 Days Diagnoses Hospital discharge follow-up Z09 Dyslipidemia E78.5 Leg injury S89.90XA Hypovitaminosis D E55.9 Additional Codes EAN-7 Assessment Billing - EAN-7 Assessment Tool: EAN-7 Assessment 06013 ([id number]) Time Spent (min) 22
== END 2023-04-18 14:06 | disposition home or self-care (01) ==
PROVIDERS: PCP Internal Medicine; Visit Provider Internal Medicine
DX: E78.5 Hyperlipidemia, unspecified (principal); Z09 Encounter for follow-up examination after completed treatment for conditions other than malignant neoplasm; S89.92XA Unspecified injury of left lower leg, initial encounter; E55.9 Vitamin D deficiency, unspecified
CPT/HCPCS: 99214

== ENCOUNTER 2023-05-04 08:37 | Outpatient (REF) | payer OTHER, SELFPAY ==
--- NOTE | ~2023-05-04 | MM_ITS ---
EXAMINATION: MM SCREENING DIGITAL BREAST TOMOSYNTHESIS, BILATERAL CLINICAL INFORMATION: Screening. Asymptomatic. COMPARISON: Mammography: This study is compared with prior exams dating back to 2020. TECHNIQUE: Digital breast tomosynthesis is performed in both the craniocaudal and mediolateral oblique views along with computer-aided detection (CAD). Synthesized 2D images are generated from the tomosynthesis. FINDINGS: The breasts are almost entirely fatty (ACR BI-RADS breast composition Category a). There are no significant masses, abnormal calcifications, or other abnormalities. MM/MM tomosynthesis screening BI IMPRESSION: No mammographic evidence of malignancy. ASSESSMENT: BI-RADS BI-RADS 1 - Negative RECOMMENDATION: Routine annual mammography screening. 1 year F/U This examination should not preclude the clinical evaluation of a suspicious palpable abnormality. This patient's information was entered into a reminder system with a target due date for their next mammogram.
== END 2023-05-04 08:38 | disposition home or self-care (01) ==
LOC: HO.MAMMO 08:37
PROVIDERS: PCP Internal Medicine; Visit Provider Internal Medicine
DX: Z12.31 Encounter for screening mammogram for malignant neoplasm of breast (principal)
CPT/HCPCS: 77063; 77067

== ENCOUNTER → 2023-05-04 09:00 | Outpatient (BNV) | payer OTHER, SELFPAY | PROVIDERS: PCP Internal Medicine; Visit Provider Radiology Diagnostic Radiology | DX: Z12.31 Encounter for screening mammogram for malignant neoplasm of breast (principal) | CPT/HCPCS: 77063; 77067 ==

== ENCOUNTER 2024-06-28 14:27 | Outpatient (REF) | payer OTHER, SELFPAY ==
--- NOTE | ~2024-06-28 | MM_ITS ---
EXAMINATION: MM SCREENING DIGITAL BREAST TOMOSYNTHESIS, BILATERAL CLINICAL INFORMATION: Screening. Asymptomatic. COMPARISON: Mammography: Comparison is made with available priors TECHNIQUE: Digital breast mammography with tomosynthesis is performed in both the craniocaudal and mediolateral oblique views along with computer-aided detection (CAD). FINDINGS: There are scattered areas of fibroglandular density (ACR BI-RADS breast composition Category b). There are no significant masses, abnormal calcifications, or other abnormalities. MM/MM tomosynthesis screening BI IMPRESSION: No mammographic evidence of malignancy. ASSESSMENT: BI-RADS BI-RADS 1 - Negative RECOMMENDATION: Routine annual mammography screening. 1 year F/U This examination should not preclude the clinical evaluation of a suspicious palpable abnormality. This patient's information was entered into a reminder system with a target due date for their next mammogram. Electronically signed by: Venecia Samuels DO 07/09/2024 09:13 AM JIMENEZ
== END 2024-06-28 14:28 | disposition home or self-care (01) ==
LOC: HO.MAMMO 14:27
PROVIDERS: PCP Internal Medicine; Visit Provider Internal Medicine
DX: Z12.31 Encounter for screening mammogram for malignant neoplasm of breast (principal)
CPT/HCPCS: 77063; 77067

== ENCOUNTER → 2024-06-28 14:30 | Outpatient (BNV) | payer OTHER, SELFPAY | PROVIDERS: PCP Internal Medicine; Visit Provider Internal Medicine | DX: Z12.31 Encounter for screening mammogram for malignant neoplasm of breast (principal) | CPT/HCPCS: 77063; 77067 ==

== ENCOUNTER 2024-12-25 10:54 | Outpatient (AMB) | payer OTHER, SELFPAY ==
[2024-12-25 11:06] VITALS: BP 140/78; BMI 37.2
--- NOTE | 2024-12-25 11:06 | MHC.PC.OV ---
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 Accompanied by: Daughter Allergies No Known Allergies Allergy (Verified 12/25/24 11:41) Medication List - Last Reconciled 12/25/24 by Nilsa Stahl MD cholecalciferol (vitamin D3) 25 mcg PO DAILY 90 days rosuvastatin 5 mg PO DAILY 90 days trazodone 100 mg PO BEDTIME PRN Tobacco use date assessed: 12/25/24 Dental Screening Dental Screen Date: 12/25/24 Did you have a dental visit in the last 12 months?: Yes Did you have a dental problem in the last 6 months where you did not have access to dental care?: No Was dental information given to patient?: Patient has dentist HPI HPI Comments History of Present Illness Details The patient is a 59-year-old female presenting for an annual physical exam. She underwent a colonoscopy in 2019, which revealed an adenomatous polyp. As per the screening guidelines, a follow-up colonoscopy is advised after five years, and she appears compliant with this plan, although concerned about recurrence. The patient reports experiencing elevated blood pressure readings, particularly under stress, but no formal hypertension diagnosis has been made. She mentions persistent high blood pressure readings during dental visits. The patient's treatment regimen includes rosuvastatin for cholesterol, with concerns about cholesterol management. She has not begun any antidepressant therapy but acknowledges some depressive symptoms, scored via PHQ-9. She identifies anemia as a medical history concern and expresses a desire for further investigation of her blood pressure, given the familial history of hypertension and diabetes. Additionally, she shares a lack of any alcohol or tobacco use, aligning with her preventive health measures. A recent mammogram returned normal results, highlighting her adherence to health maintenance guidelines. - Colonoscopy performed in 2019, with repeat recommended in 5 years - Normal mammogram in June 2024 - Monitoring and re-evaluation of blood pressure recommended in 3 weeks [facility] Medical History (Updated 12/25/24 @ 12:03 by Nilsa Stahl MD) Mild recurrent major depression Tachycardia Shortness of breath Hypovitaminosis D Chronic fatigue Dyslipidemia Insomnia Anemia Arthritis Chronic sinusitis Postmenopausal bleeding Surgical History History of tooth extraction Hx of colonoscopy Hx of dilation and curettage Hx of tubal ligation Family History Mother Diabetes HTN (hypertension) Father History of high blood pressure Social History Household Members: Children Housing: Apartment Are you a primary resident care director to a significant other at home: No Do you presently have visiting nurse or other home services: No Alcohol intake: never Patient Tobacco Use Status: Never used Tobacco e-Cigarette/Vaping Use: Never Used Second Hand Smoke Exposure: No service: No Current occupational status: disabled Sexual orientation: Straight/Heterosexual Gender identity: Female Cognitive needs: No Hearing needs: No Vision needs: No Questionnaire PHQ-9 Over the last 2 weeks, how often have you been bothered by any of the following problems? 1. Little interest or pleasure in doing things: several days 2. Feeling down, depressed, or hopeless: several days 3. Trouble falling or staying asleep, or sleeping too much: nearly every day 4. Feeling tired or having little energy: several days 5. Poor appetite or overeating: several days 6. Feeling bad about yourself - or that you are a failure or have let yourself or your family down: several days 7. Trouble concentrating on things, such as reading the newspaper or watching television: several days 8. Moving or speaking so slowly that other people could have noticed. Or the opposite - being so fidgety or restless that you have been moving around a lot more than usual: not at all 9. Thoughts that you would be better off or of hurting yourself in some way: not at all Total score: 9 Depression Screening Interpretation: Positive Depression Screening Follow-up: Existing condition and Follow-up Visit Requested Depression Screening Done: Yes 14254 - PHQ-9 Billing: Yes Source: Developed by Drs. Atul Rosado, Farida King, Medhat Ruiz and colleagues, with an educational eliot from [employer]. Thrive Questionnaire Date Thrive assessed: 12/25/24 I am a: Patient What is your living situation today?: I have a steady place to live Within the past 12 months, did the food you bought not last and you didn't have the money to get more?: I choose not to answer this question Within the past 12 months, did you worry whether your food would run out before you got money to buy more?: I choose not to answer this question Do you have trouble paying for medicines?: No Do you have trouble getting transportation to medical appointments?: No Do you have trouble paying your heating and electricity bill?: No Do you have trouble taking care of your child, family member or friend?: No Do you have trouble with day-to-day activities such as bathing, preparing meals, shopping, managing finances, etc.?: I choose not to answer this question Are you currently unemployed and looking for a job?: No Are you interested in more education?: No Please select the resources that you would like help with: None Currently or been in a relationship where the following occur: No concerns reported THRIVE Score: 0 AUDIT C Alcohol Use Questionnaire (AUDIT-C) 1. How often do you have a drink containing alcohol?: Never Total Score: 0 EAN-7 AMB Questionnaire EAN-7 Date EAN - 7 assessed: 12/25/24 Feeling nervous, anxious, or on edge: 1 = Several days Not being able to stop or control worryin = Several days Worrying too much about different things: 1 = Several days Trouble relaxin = Several days Being so restless that it is hard to sit still: 1 = Several days Becoming easily annoyed or irritable: 1 = Several days Feeling afraid as if something awful might happen: 0 = Not at all Total EAN-7 score (0-4 normal; 5-9 mild; 10-14 moderate; 15-21 severe): 6 Source: Developed by Drs. Atul Rosado, Farida King, Medhat Ruiz and colleagues, with an educational eliot from [employer]. Review of Systems Const All systems reviewed & are unremarkable except as noted in HPI and below Card Denies chest pain at rest, Denies chest pain with activity, Denies edema, Denies irregular heart rhythm, Denies claudication, Denies dyspnea, Denies dyspnea on exertion, Denies orthopnea, Denies paroxysmal nocturnal dyspnea and Denies slow heart rate Resp Denies cough, Denies dyspnea and Denies dyspnea on exertion GI Denies abdominal pain, Denies change in bowel habits, Denies excessive flatus, Denies nausea and Denies vomiting Denies urinary incontinence, Denies urinary hesitancy and Denies urinary urgency Musc Denies abnormal gait, Denies atrophy, Denies deformity and Denies limited range of motion Neuro Denies abnormal gait, Denies behavioral changes and Denies lack of coordination Psych Denies behavioral changes Physical exam (Primary Care) Vital Signs: Last Vital Signs BP 140/78 H 12/25/24 11:06 BMI result Body Mass Index 37.2 Tobacco/Smoking Status: Tobacco use Status Tobacco use date assessed 12/25/24 12/25/24 11:11 Patient Tobacco Use Status Never used Tobacco 12/25/24 11:11 e-Cigarette/Vaping Use Never Used 12/25/24 11:11 PHQ-9: PHQ-9 Score PHQ-9: Total score 9 12/25/24 11:11 Depression Screening Interpretation: Positive Depression Screening Follow-up: Existing condition and Follow-up Visit Requested Thrive Assessment: Date of Thrive Assessment Date Thrive assessed 12/25/24 12/25/24 11:11 Currently or been in a relationship where the following occur: No concerns reported [facility] Head: Yes normal to inspection, Yes normocephalic and Yes atraumatic Ears: external ears normal Eyes General: appearance normal, both eyes and all related structures Eyelids: Yes eyelids normal Conjunctivae: conjunctivae normal Neck Neck: Yes normal visual inspection and Yes supple Resp Effort & Inspection: normal respiratory effort Auscultation: clear to auscultation bilaterally Cardio Jugular venous distension: no JVD Rate: regular rate Rhythm: regular rhythm Heart sounds: S1 normal heart sound present and S2 normal heart sound present GI Inspection: Yes normal to inspection Palpation (GI): Soft to palpation and nontender Auscultation: normal bowel sounds Skin General skin exam: no rashes or lesions noted Neuro General: no focal motor deficits Extrem General: Yes full ROM Psych Appearance: grossly normal Coding Level of Care Code Est Pt Level 3 (78073) Est Pt Prev Care 40-64y(79667) Diagnoses Physical exam Z00.00 Mild recurrent major depression F33.0 Insomnia, unspecified type G47.00 Insomnia type: unspecified Additional Codes PHQ-9 - 92517 - PHQ-9 Billing: Yes ([id number]) Time Spent (min) 32 Assessment & Plan Assessment & Plan (1) Physical exam: Code(s): Z00.00 - Encounter for general adult medical examination without abnormal findings Category: Medical (2) Mild recurrent major depression: Code(s): F33.0 - Major depressive disorder, recurrent, mild Category: Medical (3) Insomnia: Code(s): G47.00 - Insomnia, unspecified Category: Medical Qualifiers: Insomnia type: unspecified Qualified Code(s): G47.00 - Insomnia, unspecified Plan The patient presented for an annual physical exam, and there is a particular focus on monitoring her blood pressure due to a history of elevated readings and family predispositions. A three-week follow-up is recommended to reassess her blood pressure to confirm a potential diagnosis of hypertension. Management of her anemia is addressed through laboratory tests to explore underlying causes. Her existing hyperlipidemia management plan continues with rosuvastatin, and dietary measures will be encouraged. For her depression, lifestyle interventions are considered, with potential future pharmacological treatment if necessary. Preventive health measures include adhering to the colonoscopy follow-up plan and reassuring her of normal mammography findings. Patient was informed and verbally consented to the use of an ambient scribe for clinic note documentation during this visit. Today, I discussed with the patient the importance of reevaluating her elevated blood pressure to confirm the diagnosis of hypertension, highlighting the familial risks associated. The potential for lifestyle changes and pharmacological intervention was addressed with a specific follow-up plan in three weeks. The patient's concern about anemia was also explored, with a plan for complete blood work. Given her ongoing management of hyperlipidemia with rosuvastatin, we emphasized the continuation of treatment and dietary adherence to maintain healthy cholesterol levels. For her depression, I recommended tracking symptoms and following up on her PHQ-9 score, suggesting lifestyle support. I advised adhering to the planned colonoscopy and reassured her about normal mammogram results. Orders: Orders Lipid Panel Today E78.5 - Hyperlipidemia, unspecified IRON PROFILE Today D64.9 - Anemia, unspecified Vitamin D 25-OH Total Today E55.9 - Vitamin D deficiency, unspecified Complete Blood Count Auto Diff Today D64.9 - Anemia, unspecified Vitamin B12 and Folate Today E53.8 - Deficiency of other specified B group vitamins Comprehensive [place]. Panel Fast Today Z00.00 - Encounter for general adult medical examination without abnormal findings Thyroid Stimulating Hormone Today E66.9 - Obesity, unspecified Referrals Gastroenterology Referral Z12.11 - Encounter for screening for malignant neoplasm of colon Medications: New trazodone 100 mg PO BEDTIME 90 days 90 tabs 1RF F33.0 - Major depressive disorder, recurrent, mild Refilled cholecalciferol (vitamin D3) 25 mcg PO DAILY 90 days 90 caps 1RF rosuvastatin 5 mg PO DAILY 90 days 90 tabs 1RF Patient Instructions: - Return for blood pressure checking in 3 weeks. - Follow dietary guidance for cholesterol management. - Monitor mood and report any worsening or persistent symptoms. - Continue current medications as prescribed. - Attend scheduled colonoscopy in 2024. - Follow up on anemia workup as discussed. - Maintain healthy lifestyle and preventive health measures.
== END 2024-12-25 11:56 | disposition home or self-care (01) ==
LOC: HO.HMCH 10:55
PROVIDERS: PCP Internal Medicine; Visit Provider Internal Medicine
DX: Z00.00 Encounter for general adult medical examination without abnormal findings (principal); F33.0 Major depressive disorder, recurrent, mild; G47.00 Insomnia, unspecified

== ENCOUNTER → 2024-12-25 10:54 | Outpatient (BNVA) | payer OTHER, SELFPAY | PROVIDERS: PCP Internal Medicine; Visit Provider Internal Medicine | DX: Z00.00 Encounter for general adult medical examination without abnormal findings (principal); F33.0 Major depressive disorder, recurrent, mild; G47.00 Insomnia, unspecified | CPT/HCPCS: 96127; 99212; 99396 ==

== ENCOUNTER → 2025-01-16 13:26 | Outpatient (BNVA) | payer OTHER, SELFPAY | PROVIDERS: PCP Internal Medicine ==

== ENCOUNTER 2025-04-03 08:09 | Emergency (ER) | payer OTHER, SELFPAY ==
--- NOTE | ~2025-04-03 | XR_ITS ---
EXAMINATION: XR ANKLE 3 OR MORE VIEWS RIGHT HISTORY: pain COMPARISON: There are no prior studies available for comparison. FINDINGS: Three views of the right ankle are submitted. Osseous mineralization is normal. There is no fracture or dislocation. The joint spaces are preserved. There is a small plantar calcaneal spur. The soft tissues are unremarkable. XR/XR ankle RT min 3V IMPRESSION: Small plantar calcaneal spur. Otherwise unremarkable examination of the right ankle. Electronically signed by: Atul Stuart MD 04/03/2025 08:53 AM EDT
[2025-04-03 08:14] VITALS: BP 168/82; PULSE 66; RESP 20; TEMP 36.1; O2SAT 98; BMI 37.0
--- NOTE | 2025-04-03 08:50 | ED_ITS ---
HPI - Extremity Problem General Chief complaint: Extremity Injury, Lower Stated complaint: R leg pain no injury Time Seen by Provider: 04/03/25 08:27 Source: patient Mode of arrival: ambulatory Limitations: no limitations History of Present Illness ED Provider: Quynh Lester PA-C HPI Narrative: 60 yo female presents to the ER for evaluation of right ankle pain for the last 3 weeks. She reports the pain is located on the outside of her ankle and radiates to the top of her foot when she walks. She denies any fall, trauma, or injury. She denies any associated swelling, redness, warmth. She has been wearing a compressive sleeve with some improvement in the pain when she walks. She has been taking tylenol with minimal relief. she reports today the pain was worse and she could bearly put weight on it so she came to the ER for evaluation. Onset (ago): week(s) Pain Consistency: constant Location: right and lower extremity Quality: stabbing and aching Radiation: other (foot) Relieving factors: rest Exacerbating factors: weight bearing Associated symptoms: denies other symptoms Related Data Previous Rx's ?Medication ?Instructions ?Recorded cholecalciferol (vitamin D3) 25 25 mcg PO DAILY 90 day s #90 caps 12/25/24 mcg (1,000 unit) capsule rosuvastatin 5 mg tablet 5 mg PO DAILY 90 days #90 ta bs 12/25/24 trazodone 100 mg tablet 100 mg PO BEDTIME 90 days #9 0 tabs 12/25/24 naproxen 500 mg tablet 500 mg PO BID PRN pain #20 t abs 04/03/25 Allergies Allergy/AdvReac Type Severity Reaction Status Date / Time No Known Allergies Allergy Verified 04/03/25 08:16 Review of Systems Review of Systems: Yes all other systems are reviewed and are negative FORMERLY [facility], [facility] Past Medical History Medical History (Updated 04/03/25 @ 08:58 by DAYTON Acuña) Mild recurrent major depression Tachycardia Shortness of breath Hypovitaminosis D Chronic fatigue Dyslipidemia Insomnia Anemia Arthritis Chronic sinusitis Postmenopausal bleeding Surgical History History of tooth extraction Hx of colonoscopy Hx of dilation and curettage Hx of tubal ligation Family History Family History Mother Diabetes HTN (hypertension) Father History of high blood pressure Social History Social History Household Members: Children Housing: Apartment Are you a primary neurocritical care physician to a significant other at home: No Do you presently have visiting nurse or other home services: No Alcohol intake: never Patient Tobacco Use Status: Never used Tobacco Smoked in Last 30 Days: No e-Cigarette/Vaping Use: Never Used Second Hand Smoke Exposure: No Use of substances other than those prescribed or required for medical reasons: No Advance Directives: No Advance Directives Information Provided: Yes Do you have a plan to hurt others: No Plan Patient : No service: No Current occupational status: disabled Sexual orientation: Straight/Heterosexual Gender identity: Female Cognitive needs: No Hearing needs: No Vision needs: No Physical Exam Exam: Exam: Appearance: Alert. Oriented X3. No acute distress. HEENT: normal inspection CVS: Normal heart rate and rhythm. Pulses normal. Respiratory: No respiratory distress. Skin: Skin warm and dry. Normal skin color. Normal skin turgor. No rashes. Extremities: normal inspection of the right ankle and foot, no gross deformity, no erythema, no swelling. tenderness of the lateral malleolus, mild pain with plantar and dorsiflexion. nontender heel, nontender foot. 2+ DP/PT pulses. Neuro: Oriented X 3. No motor deficit. No sensory deficit. Vital Signs: Vital Signs: Last Vital Signs Temp 97.0 F 04/03/25 09:51 Pulse 68 04/03/25 09:51 Resp 17 04/03/25 09:51 BP 140/85 H 04/03/25 09:51 Pulse Ox 95 04/03/25 09:51 O2 Del Method Room Air 04/03/25 09:51 BMI result Body Mass Index 37.0 Medical Decision Making Medical Decision Making MDM Narrative: 60 yo female presenting with nontraumatic right ankle pain x3 weeks. exam is reassuring and there is no evidence of septic joint, gout. XR with only a calcaneal spur which she is not having symptoms of will plan to place in MIRTA wrap for compression/support, rest, ice, elevate and start NSAID BID for 1 week to see if improved asking for a walking boot however there is no indication for this. she would like something to support the ankle so air cast was provided recommending orthopedic f/u and PCP follow up if no improvement with supportive care stable for d/c home Differential Diagnosis Differential Diagnoses: The differential diagnosis associated with the presentation includes tendonitis, arthritis, ankle sprain/strain, gout, stress fx, nerve entrapment, Independent Interpretation I performed an independent interpretation of an: Plain X-Ray Interpretation: normal mortise, no fx seen Independent Historian Clinical information obtained from an independent historian. History obtained from or confirmed by: Other (adult daughter at bedside) External Record Review External record reviewed: Outpatient record, Prior outpatient labs and Prior outpatient radiology Prescription Management I considered prescription management with: Pain Medication Chronic Conditions Patient?s care impacted by: Other (obesity ) Critical Care Time Critical Care Time Critical Care Time: No Discharge Plan Discharge Clinical Impression: Ankle pain, right, Calcaneal spur Patient Disposition: Home, Self-Care Instructions: Arthralgia (ED), Heel Spur (ED) Additional Instructions: Your x-ray today was normal. Rest your ankle and elevate your foot when possible. Recommend MIRTA wrap for support and compression. Use ice several times per day for the next 48 hours. You may bear weight as tolerated. If pain is too severe, use crutches until better. Take the prescribed naproxen for the next week (take w/ food) and/or Tylenol as needed for pain. Follow up with your doctor and Orthopedics for further evaluation if pain persists. Prescriptions: New naproxen 500 mg tablet 500 mg PO BID PRN (Reason: pain) Qty: 20 0RF No Action cholecalciferol (vitamin D3) 25 mcg (1,000 unit) capsule 25 mcg PO DAILY 90 Days Qty: 90 1RF rosuvastatin 5 mg tablet 5 mg PO DAILY 90 Days Qty: 90 1RF trazodone 100 mg tablet 100 mg PO BEDTIME 90 Days Qty: 90 1RF Referrals: [facility] [place] [facility] [Provider Group] Referral Note: nontraumatic right ankle pain, XR unremarkable Nilsa Camejo MD [Primary Care Provider, Internal Medicine] Interventions: ED Discharge Assessment Last Done: 04/03/25 09:51 Discharge Date/Time: 04/03/25 09:52 Print Language: Montenegrin
[2025-04-03 09:51] VITALS: BP 140/85; PULSE 68; RESP 17; TEMP 36.1; O2SAT 95
== END 2025-04-03 09:52 | disposition home or self-care (01) ==
PROVIDERS: Emergency Provider Emergency Medicine; PCP Internal Medicine
DX: M77.31 Calcaneal spur, right foot (principal); M25.571 Pain in right ankle and joints of right foot
CPT/HCPCS: 73610; 99283; 99284

== ENCOUNTER → 2025-04-03 08:22 | Outpatient (BNV) | payer OTHER, SELFPAY | PROVIDERS: Emergency Provider Emergency Medicine; PCP Internal Medicine; Visit Provider Radiology Diagnostic Radiology | DX: M77.31 Calcaneal spur, right foot (principal) | CPT/HCPCS: 73610 ==

== ENCOUNTER 2025-04-17 11:54 | Outpatient (AMB) | payer OTHER, SELFPAY ==
--- NOTE | 2025-04-17 11:56 | MHC.OFFVIS ---
Vital Signs 04/17/25 11:58 Height 5 ft 3 in Weight 210 lb BMI 37.2 BP 131/59 L Blood Pressure Location Lt brachial Position Sitting Pulse 85 Pulse Oximetry (%) 98 Oxygen Delivery Method Room Air Intake Visit Reasons: colo screening l/s 2020 Intake Note: Patient new consult for pre colonoscopy screening/last Colonoscopy by Dr. Senior was 08/2020 with 5 yrs recall. Patient cc: abdominal discomfort on and off, diarrhea come and go, and dizziness/tiredness on and off. 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 LOW was in Aug, 2020 CHRONIC ILLNESSES: hyperlipidemia, Anemia-remote history none present, IBS with mixed symptoms TODAY'S VISIT Telephone Avionics Engineer # [id number] Patient new consult for pre colonoscopy screening/last Colonoscopy by Dr. Senior was 08/2020 with 5 yrs recall. Patient cc: abdominal discomfort on and off, diarrhea come and go, and dizziness/tiredness on and off. Pt complains of intermittent stomach ache, diarrhea and constipation - comes and goes. Symptoms may be associated with greasy food HB comes and goes and denies dysphagia Has a BM daily - denies black stools or rectal bleeding. Intentional wt loss. Denies smoking or ETOH abuse Always snores and denies sleep apnea Patient is accompanied by her daughter who interpreted for the patient. Colonoscopy and bx results were reviewed with the patient - repeat colon advised in 5 yrs. PAST VISIT: Intermittent heartburn and takes medication prn. Denies dysphagia or abdominal pain. Intermittent diarrhea with 3-4 BMs a day - ? related to food ? juice and ? milk products. Diarrhea has improved. Patient denies black stools or rectal bleeding Denies change in appetite or weight. Patient Denies past problems with anesthesia. Denies major cardiac or pulonary problems. Admits to snoring and denies sleep apnea. Denies known FH of colon polyps, colon cancer or other GI malignancy. Dad had prostate cancer. LABS IN [facility]: November 2018-CBC, lytes, BUN, creatinine, liver functions are normal GI IMAGING STUDIES: January 2016-CT abdomen and pelvis-left flank pain- IMPRESSION: No acute abnormality of the abdomen or pelvis. ENDOSCOPIC PROCEDURES: COLONOSCOPY SHOWED: One small polyp removed and not retrieved. Random biopsies were obtained from the colon which were normal Moderate diverticulosis seen in the left colon Small hemorrhoids on retroflexed exam. Plan: Repeat Colonoscopy interval based on path results - in 5 years since an adenomatous appearing polyp was removed and not retrieved. Above findings were reviewed with the patient and colon polyps and diverticulosis handouts were given in the discharge area PAST GI HISTORY BY REVIEW OF MEDICAL RECORDS: Last seen in GI on 01/15/19 by PD Tomeka: Assessments 1. Encounter for screening colonoscopy - Z12.11 (Primary) 2. Heartburn - R12 3. Passage of loose stools - R19.5 Treatment 1. Encounter for screening colonoscopy Start Dulcolax Tablet Delayed Release, 5 mg, 2 tablets, Orally, twice a day- two at noon and two at 5pm before starting prep- day before procedure, 1 day, 4, Refills 1 Start TriLyte Solution Reconstituted, 420 GM, as directed, Orally, drink 1/2 bottle between 5-7pm then drink the 2nd half 6hrs before arrival in am & finish 4 hrs before arrival, 2 days, 1 bottle, Refills 1 IMAGING: Colonoscopy Notes: Patient to be scheduled for a screening colonoscopy. Patient is aware to follow a clear liquid diet the day before the procedure and remain NPO after midnight. Patient is aware to consume preparation to cleanse bowel the night before and the morning of the procedure. Patient has been advised regarding the risks and benefits of the procedure. Patient is also aware they will need a ride home following the procedure. Patient to follow up after procedure. 2. Heartburn Start Zantac 150 Maximum Strength Tablet, 150 MG, 1 tablet, Orally, twice a day, prn for breakthrough heartburn, 30 day(s), 60, Refills 11 Notes: Patient states that she has occasional heartburn and some dyspepsia. Have suggested that she try the Zantac as needed and will give an update at next visit.,Indigestion (Dyspepsia or Heartburn): Care Instructions material was printed. 3. Passage of loose stools Notes: Patient is aware that for couple of days before the colonoscopy, she should not be using the Imodium and see if that will assist with a better clean out process for the colonoscopy. Follow Up :after procedur [facility] Medical History (Updated 04/17/25 @ 12:32 by Mikey Senior MD) Mild recurrent major depression Tachycardia Shortness of breath Hypovitaminosis D Chronic fatigue Dyslipidemia Insomnia Anemia Arthritis Chronic sinusitis Postmenopausal bleeding Surgical History History of tooth extraction Hx of colonoscopy Hx of dilation and curettage Hx of tubal ligation Family History Mother Diabetes HTN (hypertension) Father History of high blood pressure Social History Household Members: Children Housing: Apartment Are you a primary transitions rn care coordinator to a significant other at home: No Do you presently have visiting nurse or other home services: No Alcohol intake: never Patient Tobacco Use Status: Never used Tobacco e-Cigarette/Vaping Use: Never Used Second Hand Smoke Exposure: No service: No Current occupational status: disabled Sexual orientation: Straight/Heterosexual Gender identity: Female Cognitive needs: No Hearing needs: No Vision needs: No Review of Systems Const All systems reviewed & are unremarkable except as noted in HPI and below Physical Exam Vital Signs: Last Vital Signs Pulse 85 04/17/25 11:58 BP 131/59 L 04/17/25 11:58 Pulse Ox 98 04/17/25 11:58 Oxygen Delivery Method Room Air 04/17/25 11:58 BMI result Body Mass Index 37.2 Const General: healthy appearing and no acute distress Nutritional Appearance: obese Orientation/consciousness: patient oriented x3 Limitations: language barrier HEENT Head: Yes normal to inspection Ears: hearing grossly normal bilaterally Eyes Sclerae: sclerae normal Pupils: Equal, round and reactive pupils present Neck Neck: Yes normal visual inspection Chest Chest palpation & inspection: normal inspection of the chest Resp Effort & Inspection: normal respiratory effort Auscultation: clear to auscultation bilaterally Cardio Palpation: normal PMI Rate: regular rate Rhythm: regular rhythm Heart sounds: S1 normal heart sound present, S2 normal heart sound present and no murmurs GI Palpation (GI): Soft to palpation, nontender and No hepatosplenomegaly present Auscultation: normal bowel sounds Rectal Exam - Female: deferred Skin General skin exam: no rashes or lesions noted Neuro General: patient oriented x3, gait normal and moves all extremities Cranial nerves: Yes Equal, round and reactive pupils present Psych Appearance: grossly normal Mental Status: mental status grossly normal Assessment & Plan Assessment & Plan (1) Colon cancer screening: Comment: 08/09 One small adenomatous appearing polyp removed and not retrieved. Random biopsies were obtained from the colon which were normal. Repeat colonoscopy is advised in 5 years. Code(s): Z12.11 - Encounter for screening for malignant neoplasm of colon Category: Medical (2) Diverticulosis: Code(s): K57.90 - Diverticulosis of intestine, part unspecified, without perforation or abscess without bleeding Category: Medical (3) GERD (gastroesophageal reflux disease): Code(s): K21.9 - Gastro-esophageal reflux disease without esophagitis Category: Medical Plan Pt complains of intermittent stomach ache, diarrhea and constipation - comes and goes. Symptoms may be associated with greasy food HB comes and goes and denies dysphagia Has a BM daily - denies black stools or rectal bleeding. Intentional wt loss. Denies smoking or ETOH abuse Always snores and denies sleep apnea Patient was advised to schedule an appointment for a colonoscopy for surveillance for colon polyps. Colonoscopy prep and procedure were reviewed with the patient. Famotidine 20 mg twice daily for intermittent heartburn symptoms. Follow-up in 6 months Medications: New famotidine 20 mg PO BID 60 tabs 3RF 30 days bisacodyl (Dulcolax (bisacodyl)) Take 2 tablets at 12 pm starting 5 days before colonoscopy appointment 10 mg (2 x 5 mg) PO ONCE 10 tabs 0RF 5 days polyethylene glycol 3350 (Miralax) Mix Miralax with 64 oz(8 cups) of Crystal light. Take 2 tablets of Dulcolax qt 12 pm. Wait to have your 1st bowel movement, then begin drinking Miralax. Drink a glass of Miralax every 10-15 minutes until you are finished. You will drink at least another 4 cups of clear liquid of your choice over the next 2 hours. Please drink as many clear liquids as possible You may have clear liquids up to four hours before your procedure 17 grams PO DAILY 238 grams 0RF colon prep 1 day Coding Level of Care Code New Pt Level 4 (75150) Diagnoses Colon cancer screening Z12.11 Diverticulosis K57.90 GERD (gastroesophageal reflux disease) K21.9 Time Spent (min) 23
[2025-04-17 11:58] VITALS: BP 131/59; PULSE 85; O2SAT 98; BMI 37.2
== END 2025-04-17 12:30 | disposition home or self-care (01) ==
LOC: HO.HGI 11:55
PROVIDERS: PCP Internal Medicine; Visit Provider Internal Medicine Gastroenterology
DX: Z01.818 Encounter for other preprocedural examination (principal); Z12.11 Encounter for screening for malignant neoplasm of colon; K57.90 Diverticulosis of intestine, part unspecified, without perforation or abscess without bleeding; K21.9 Gastro-esophageal reflux disease without esophagitis
CPT/HCPCS: 99203

== ENCOUNTER → 2025-04-17 11:54 | Outpatient (BNVA) | payer OTHER, SELFPAY | PROVIDERS: PCP Internal Medicine; Visit Provider Internal Medicine Gastroenterology | DX: Z01.818 Encounter for other preprocedural examination (principal); K21.9 Gastro-esophageal reflux disease without esophagitis; K57.90 Diverticulosis of intestine, part unspecified, without perforation or abscess without bleeding | CPT/HCPCS: 99202 ==

== ENCOUNTER 2025-05-08 08:45 | Outpatient (AMB) | payer OTHER, SELFPAY ==
--- NOTE | 2025-05-08 08:52 | MHC.OFFVIS ---
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 Double End Sewer concerns: none. Currently not sexually active. Denies any vaginal dryness or irritation. STI testing offered; she declines. Attempting to eat a healthy diet with calcium and vitamin D and stays active with exercise-walking. Last pap smear; 2019, negative. Last mammogram; 2023. Colonoscopy is UTD. Denies any family history of breast, ovarian or colon cancer. FORMERLY [facility] Medical History (Updated 05/08/25 @ 09:37 by Ariana Swanson CNM) Encounter for well woman exam with routine gynecological exam Mild recurrent major depression Tachycardia Shortness of breath Hypovitaminosis D Chronic fatigue Dyslipidemia Insomnia Anemia Arthritis Chronic sinusitis Postmenopausal bleeding Surgical History History of tooth extraction Hx of colonoscopy Hx of dilation and curettage Hx of tubal ligation Family History Mother Diabetes HTN (hypertension) Father History of high blood pressure Social History Household Members: Children Housing: Apartment Are you a primary home health care respiratory therapist to a significant other at home: No Do you presently have visiting nurse or other home services: No Alcohol intake: never Patient Tobacco Use Status: Never used Tobacco e-Cigarette/Vaping Use: Never Used Second Hand Smoke Exposure: No service: No Current occupational status: disabled Sexual orientation: Straight/Heterosexual Gender identity: Female Cognitive needs: No Hearing needs: No Vision needs: No Female Reproductive History Menstrual control method: none Total pregnancies: 3 Full term: 3 Date of last pap smear: 04/21/20 (negative pap smear, negative hpv) Date of Mammogram: 06/29/24 (bi rad 1) Review of Systems Const All systems reviewed & are unremarkable except as noted in HPI and below Reports as per HPI Eyes Reports no additional complaints ENT Reports no additional complaints Card Reports no additional complaints Resp Reports no additional complaints GI Reports as per HPI and Reports no additional complaints Reports as per HPI Musc Reports no additional complaints Skin/Breast Reports as per HPI Neuro Reports no additional complaints Psych Reports no additional complaints Endo Reports no additional complaints Chip/Lymph Reports no additional complaints Aller/Immun Reports no additional complaints Physical Exam Vital Signs: Last Vital Signs BP 122/76 05/08/25 09:07 BMI result Body Mass Index 37.7 Const General: cooperative, healthy appearing, no acute distress, well developed and alert Orientation/consciousness: patient oriented x3 HEENT Head: Yes normal to inspection Eyes General: appearance normal, both eyes and all related structures Neck Neck: Yes normal visual inspection Thyroid: Thyroid normal Chest Chest palpation & inspection: normal inspection of the chest and other (no puckering, dimpling, peau de orange, retraction, discharge, masses) Breast/axilla inspection: normal inspection of the breasts Breast/axilla palpation: normal palpation of the breasts Resp Effort & Inspection: normal respiratory effort GI Inspection: Yes normal to inspection Palpation (GI): Soft to palpation Rectal Exam - Female: deferred General: Yes bladder normal to palpation External Female Exam: normal external appearance and normal appearance of the urethra Speculum Exam - Vagina: normal appearance of the vagina, normal palpation and normal vaginal discharge Speculum Exam - Cervix: normal appearance of the cervix and normal palpation Bimanual exam- vagina & uterus: normal bimanual exam, normal palpation, uterine size normal, bladder normal to palpation, normal palpation and non-tender Bimanual Exam- Adnexa, other: no masses Skin General skin exam: no rashes or lesions noted Rashes: no rashes Neuro General: patient oriented x3 Cognition (Neuro): normal cognition Extrem General: Yes normal to inspection Psych Attitude: cooperative Thought process: Normal thought process present Assessment & Plan Assessment & Plan (1) Encounter for well woman exam with routine gynecological exam: Code(s): Z01.419 - Encounter for gynecological examination (general) (routine) without abnormal findings Category: Medical Plan Discussed: Current recommendations for pap smears per ASCCP guidelines. Pap obtained await results for final plan of care. Breast awareness, periodic self breast exams and yearly mammogram. Mammogram ordered advised to schedule appointment. Maintain a healthy lifestyle, well balanced diet including Calcium 1,200 mg and Vitamin D 600 IU daily, and routine exercise. Use of condoms for STI prevention if indicated. Contact the office with any postmenopausal bleeding. Patient verbalizes understanding and agrees to the plan of care. She was given opportunity to ask questions and all questions were answered to the best of my ability. RTO in 1 year for annual case checker exam. This note is constructed using voice recognition software. While every effort has been made to ensure accuracy, chemical plant technical director errors may have been included. Orders: Orders MM tomosynthesis screening BI Today Z12.31 - Encounter for screening mammogram for malignant neoplasm of breast Pap Smear Today Z01.419 - Encounter for gynecological examination (general) (routine) without abnormal findings Coding Level of Care Code Est Pt Prev Care 40-64y(79215) Diagnoses Encounter for well woman exam with routine gynecological exam Z01.419
[2025-05-08 09:07] VITALS: BP 122/76; BMI 37.7
== END 2025-05-08 10:59 | disposition home or self-care (01) ==
LOC: HO.HWS 08:45
PROVIDERS: PCP Internal Medicine; Visit Provider Advanced Practice Midwife
DX: Z01.419 Encounter for gynecological examination (general) (routine) without abnormal findings (principal)
CPT/HCPCS: 99396; 99459

== ENCOUNTER 2025-05-08 08:45 | Outpatient (REF) | payer OTHER, SELFPAY | END 2025-05-08 08:46 | disposition home or self-care (01) | LOC: HO.LNP 08:45 | PROVIDERS: PCP Internal Medicine; Visit Provider Advanced Practice Midwife | DX: Z01.419 Encounter for gynecological examination (general) (routine) without abnormal findings (principal); Z12.31 Encounter for screening mammogram for malignant neoplasm of breast; Z11.51 Encounter for screening for human papillomavirus (HPV); Z98.51 Tubal ligation status | CPT/HCPCS: 87626; 88175; 99396 ==